=== PATIENT | female | born 1990 | race Caucasian/White ===

== ENCOUNTER 2022-05-01 16:47 | Outpatient (CLI) | payer MEDICAID, SELFPAY ==
[2022-05-01 18:53] LABS: HCG Quantitative* 231.51 mIU/mL
== END 2022-05-01 16:48 | disposition home or self-care (01) ==
PROVIDERS: PCP Registered Nurse; Visit Provider Registered Nurse
DX: O20.9 Hemorrhage in early pregnancy, unspecified (principal)
CPT/HCPCS: 76817; 84702; 86900; 86901

== ENCOUNTER 2022-05-03 16:42 | Outpatient (CLI) | payer MEDICAID, SELFPAY | END 2022-05-03 16:43 | disposition home or self-care (01) | PROVIDERS: PCP Registered Nurse; Visit Provider Registered Nurse | DX: O20.9 Hemorrhage in early pregnancy, unspecified (principal) | CPT/HCPCS: 84702 ==

== ENCOUNTER 2022-05-05 13:01 | Outpatient (CLI) | payer MEDICAID, SELFPAY | END 2022-05-05 13:02 | disposition home or self-care (01) | PROVIDERS: PCP Registered Nurse; Visit Provider Registered Nurse | DX: O03.4 Incomplete spontaneous abortion without complication (principal) | CPT/HCPCS: 84702 ==

== ENCOUNTER 2022-05-07 14:21 | Outpatient (CLI) | payer MEDICAID, SELFPAY | END 2022-05-07 14:22 | disposition home or self-care (01) | PROVIDERS: PCP Registered Nurse; Visit Provider Obstetrics & Gynecology | DX: O20.9 Hemorrhage in early pregnancy, unspecified (principal) | CPT/HCPCS: 84702 ==

== ENCOUNTER 2022-05-11 11:56 | Outpatient (CLI) | payer MEDICAID, SELFPAY ==
[2022-05-11 14:30] LABS: HCG Quantitative* 280.82 mIU/mL
== END 2022-05-11 11:57 | disposition home or self-care (01) ==
LOC: NFLDREF 11:57
PROVIDERS: PCP Registered Nurse; Visit Provider Obstetrics & Gynecology
DX: O03.4 Incomplete spontaneous abortion without complication (principal)
CPT/HCPCS: 84702

== ENCOUNTER 2022-05-14 15:04 | Outpatient (CLI) | payer MEDICAID, SELFPAY ==
[2022-05-14 12:50] LABS: HCG Quantitative* 212.91 mIU/mL
== END 2022-05-14 15:05 | disposition home or self-care (01) ==
PROVIDERS: PCP Registered Nurse; Visit Provider Obstetrics & Gynecology
DX: O03.4 Incomplete spontaneous abortion without complication (principal)
CPT/HCPCS: 84702

== ENCOUNTER 2022-05-24 13:10 | Outpatient (CLI) | payer MEDICAID, SELFPAY ==
[2022-05-24 17:54] LABS: HCG Quantitative* 74.56 mIU/mL
== END 2022-05-24 13:11 | disposition home or self-care (01) ==
LOC: NFLDREF 13:10
PROVIDERS: PCP Registered Nurse; Visit Provider Obstetrics & Gynecology
DX: O03.4 Incomplete spontaneous abortion without complication (principal)
CPT/HCPCS: 84702

== ENCOUNTER 2022-05-30 13:22 | Outpatient (CLI) | payer MEDICAID, SELFPAY | END 2022-05-30 13:23 | disposition home or self-care (01) | LOC: NFLDREF 13:24 | PROVIDERS: PCP Registered Nurse; Visit Provider Obstetrics & Gynecology | DX: O03.4 Incomplete spontaneous abortion without complication (principal) | CPT/HCPCS: 84702 ==

== ENCOUNTER 2022-06-06 11:57 | Outpatient (CLI) | payer MEDICAID, SELFPAY ==
[2022-06-06 15:13] LABS: HCG Quantitative* 6.93 mIU/mL
== END 2022-06-06 11:58 | disposition home or self-care (01) ==
LOC: NFLDREF 11:58
PROVIDERS: PCP Registered Nurse; Visit Provider Obstetrics & Gynecology
DX: O03.4 Incomplete spontaneous abortion without complication (principal)
CPT/HCPCS: 84702

== ENCOUNTER 2022-06-11 10:36 | Outpatient (CLI) | payer MEDICAID, SELFPAY ==
[2022-06-11 12:56] LABS: HCG Quantitative* < 2.39 mIU/mL
== END 2022-06-11 10:37 | disposition home or self-care (01) ==
LOC: NFLDREF 10:36
PROVIDERS: Obstetrics & Gynecology; PCP Registered Nurse; Visit Provider Obstetrics & Gynecology
DX: O03.4 Incomplete spontaneous abortion without complication (principal)
CPT/HCPCS: 84702

== ENCOUNTER 2023-02-20 14:12 | Outpatient (CLI) | payer MEDICAID, SELFPAY ==
[2023-02-20 18:59] LABS: Chlamydia DNA Amplified* NOT DETECTED (No Detected); GC DNA Amplified* NOT DETECTED (No Detected)
== END 2023-02-20 14:13 | disposition home or self-care (01) ==
LOC: NFLDREF 14:12
PROVIDERS: Visit Provider Registered Nurse
DX: N94.9 Unspecified condition associated with female genital organs and menstrual cycle (principal)
CPT/HCPCS: 87491; 87591

== ENCOUNTER 2023-03-19 13:48 | Outpatient (CLI) | payer MEDICAID, SELFPAY ==
--- NOTE | 2023-03-19 14:00 | CRLHL7_ITS ---
For Patients: As a result of the Century Cures Act, medical imaging exams and procedure reports are released immediately into your electronic medical record. You may view this report before your referring provider. If you have questions, please contact your health care provider. INDICATION: First trimester scan, establish dates. COMPARISON: None. TECHNIQUE: Real-time burton-scale imaging of the pelvis was performed. FINDINGS: Sonographic imaging demonstrates a single living intrauterine gestation. The embryo demonstrates a regular cardiac rate measuring 167 beats per minute. The embryo`s crown-rump length measurement of 1.3 cm corresponds to a gestational age of 7 weeks 4 days with a sonographic due date of 11/01/2023. There is a normal-appearing yolk sac. There are no gross abnormalities noted within the embryo at this early state of development. The gestational sac has a normal appearance. There is a 1.9 x 0.7 x 1.3 cm perigestational hemorrhage. The amount of fluid within the sac appears appropriate for gestational age. The cervix is closed. The myometrium appears normal. The ovaries are of normal size. Corpus luteal cyst left ovary. There are no suspicious fluid collections noted in the cul-de-sac. IMPRESSION: Single living intrauterine with sonographic gestational age 7 weeks 4 days and sonographic due date 11/01/2023. Lower uterine segment subchorionic hemorrhage measuring 1.9 x 0.7 x 1.3 cm. Dictated by Emmanuel Amanda MD @ 03/20/2023 7:12:41 AM (Electronically Signed)
== END 2023-03-19 13:49 | disposition home or self-care (01) ==
LOC: US 13:49
PROVIDERS: Visit Provider Advanced Practice Midwife
DX: Z34.91 Encounter for supervision of normal pregnancy, unspecified, first trimester (principal); O20.9 Hemorrhage in early pregnancy, unspecified; Z3A.01 Less than 8 weeks gestation of pregnancy
CPT/HCPCS: 76817; 86592; 86703; 86704; 86706; 86762; 86787; 86803; 86850; 86900; 86901; 87086; 87340

== ENCOUNTER 2023-03-19 15:19 | Outpatient (CLI) | payer MEDICAID, SELFPAY | END 2023-03-19 15:20 | disposition home or self-care (01) | PROVIDERS: Visit Provider Advanced Practice Midwife | DX: Z34.01 Encounter for supervision of normal first pregnancy, first trimester (principal) | CPT/HCPCS: 86592; 86703; 86704; 86706; 86762; 86787; 86803; 86850; 86900; 86901; 87086; 87340 ==

== ENCOUNTER 2023-06-14 07:00 | Outpatient (CLI) | payer BC, MEDICAID, SELFPAY ==
--- NOTE | 2023-06-14 07:15 | US_ITS ---
Final Report Patient: CARROLL Simon DETTLING Facility:?[facility] Patient ID:?[id number] Site Patient ID:?[id number]. Site :?1990 Study:?US OB Pelvis -06/14/2023 8:13:15 AM Ordering Physician:HUA MAC Final Report: INDICATION: Evaluate anatomy. COMPARISON: 03/19/2023 TECHNIQUE: Real time burton scale imaging of the fetus was performed as well as color Doppler analysis of the umbilical vessels. FINDINGS: Sonographic imaging demonstrates a single living intrauterine gestation. Fetus demonstrates a regular cardiac rate of 149 beats per minute. Fetus has a breech position. The placenta lies fundal posterior. Placental edges 13.8 cm from the internal cervical os. Amniotic fluid volume appears normal. Single deepest vertical pocket: 5.3 cm. The cervix is closed and measures 3.5 cm in length. The composite ultrasound gestational age is calculated at 20 weeks 5 days with an estimated sonographic due date of 10/27/2023. The estimated weight is 398 grams which lies at the 87th %. The following biometric measurements were obtained: Biparietal diameter: 4.8 cm/20 weeks 4 days 63rd% Head circumference: 17.9 cm/20 weeks 3 days 46th% Abdominal circumference: 17.1 cm/22 weeks 0 days 91st% Femur length: 3.3 cm/20 weeks 1 day 37th% The HC/AC ratio measures: 1.05 range (1.06-1.25) On anatomic survey, there is a normal appearance of the cerebral ventricles, cavum septi pellucidi, cisterna magna and cerebellum. The nose, lips, and facial profile appear normal. The cervical, thoracic and lumbar spine are well visualized and appear normal. There is a normal four-chamber heart view and the left and right ventricular outflow tracts appear normal. The diaphragm and stomach appear normal. The kidneys and bladder also appear normal. There is a normal three-vessel cord. Velamentous cord insertion appeared to be present. The four extremities appear normal. IMPRESSION: Concordant of clinical and sonographic dating. No intrinsic abnormalities noted on anatomic survey. Velamentous cord insertion. Dictated by Emmanuel Amanda MD @ 06/14/2023 11:36:54 AM (Electronic Signature)
== END 2023-06-14 07:01 | disposition home or self-care (01) ==
LOC: US 07:01
PROVIDERS: Visit Provider Advanced Practice Midwife
DX: Z34.92 Encounter for supervision of normal pregnancy, unspecified, second trimester (principal); Z3A.20 20 weeks gestation of pregnancy
CPT/HCPCS: 76805

== ENCOUNTER 2023-08-09 09:25 | Outpatient (CLI) | payer BC, MEDICAID, SELFPAY | END 2023-08-09 09:26 | disposition home or self-care (01) | LOC: NFLDREF 08-14 07:47 | PROVIDERS: Visit Provider Advanced Practice Midwife | DX: Z34.93 Encounter for supervision of normal pregnancy, unspecified, third trimester (principal) | CPT/HCPCS: 86592 ==

== ENCOUNTER 2023-08-23 15:22 | Outpatient (CLI) | payer BC, SELFPAY ==
[2023-08-23] VITALS (11 sets, daily range): BP systolic 131–141; BP diastolic 82–92; PULSE 98–113; TEMP 36.4; O2SAT 98
[2023-08-23 15:54] LABS: Mean Corpuscular HGB Conc 33 gm/dL (32-36); Mean Corpuscular Hemoglobin 31 pg (26-34); Mean Corpuscular Volume 91 fL (80-100); Platelet Count* 126 K/uL (140-440); Red Blood Count 3.94 m/uL (4.00-5.20); White Blood Count* 10.97 K/uL (4.50-11.00)
[2023-08-23 16:00] LABS: Slide Review Reflex No
[2023-08-23 16:11] LABS: Creatinine* 0.4 mg/dL (0.5-1.5); Estimated Glomerular Filt Rate 136 ml/min
[2023-08-23 16:12] LABS: Alanine Aminotransferase* 20 U/L (4-35); Aspartate Amino Transferase* 26 U/L (12-35); Blood Urea Nitrogen* 10 mg/dL (5-24)
[2023-08-23 16:29] LABS: Total Protein Urine 11 mg/dL
[2023-08-23 16:30] LABS: Creatinine Urine 17.1 mg/dL
--- NOTE | 2023-08-23 17:23 | PM.OBLDTN ---
OB - Triage/Final Diagnosis Visit Information Date Seen: 08/23/23 Narrative: The patient is a 32 year old 2 para 0 at 30.2 weeks gestation by LMP, who presents with her partner with elevated blood pressure in the clinic. Her blood pressures have been 130-140/80-90's. P/C ratio 0.6. We discussed diagnosis of Preeclampsia diagnosis and increased monitoring recommendations. She has a blood pressure cuff at home and will check her blood pressure twice a day at home with parameters. Reviewed Preectammya s/sx. Will plan for a BPP on Saturday or Saturday and set up the rest o f her monitoring at that time. She knows that she will get a call from scheduling on Saturday to set this up. we had a lengthy discussion about her anxiety. She is agreeable to starting medication today. She has been on sertraline in the past and wants to restart this. Prescription sent. Reason for evaluation: other Evaluation Laboratory results: Laboratory Tests 08/23/23 08/23/23 Range/Units 15:48 15:37 WBC 10.97 (4.50-11.00) K/uL RBC 3.94 L (4.00-5.20) m/uL Hgb 12.0 (12.0-16.0) gm/dL Hct 36.0 (33.0-51.0) % MCV 91 (80-100) fL MCH 31 (26-34) pg MCHC 33 (32-36) gm/dL Plt Count 126 L (140-440) K/uL BUN 10 (5-24) mg/dL Creatinine 0.4 L (0.5-1.5) mg/dL Estimated GFR 136 ml/min AST 26 (12-35) U/L ALT 20 (4-35) U/L Urine Creatinine 17.1 mg/dL Protein/Creatinin Ratio 0.60 H (0-0.19) Urine Total Protein 11 mg/dL Vital signs: Vital Signs - 24 hr 08/23/23 15:32 08/23/23 15:50 08/23/23 15:57 Temperature Pulse Rate 103 H 113 H Blood Pressure 141/82 H 139/90 H Pulse Oximetry 98 08/23/23 16:16 08/23/23 16:26 08/23/23 16:33 Temperature 97.5 F L Pulse Rate 99 100 Blood Pressure 139/92 H 136/88 Pulse Oximetry 08/23/23 16:36 08/23/23 16:47 08/23/23 16:58 Temperature Pulse Rate 98 104 H 105 H Blood Pressure 134/85 140/83 H 131/90 H Pulse Oximetry 08/23/23 17:06 08/23/23 17:16 Temperature Pulse Rate 111 H 98 Blood Pressure 138/91 H 141/87 H Pulse Oximetry Fetus (Single) Heart Rate Baseline: 130 Absorption Plant Operator Variability: Moderate (6-25) Monitor Accelerations: Present Monitor Decelerations: None Final Diagnosis (1) Velamentous insertion of umbilical cord: Status: Acute (2) : Status: Acute (3) Pre-eclampsia in third trimester: Status: Acute
--- NOTE | 2023-08-23 18:26 | PC.OBNST ---
NST Note NST Note Start: 08/23/23 15:26 Freq: ONCE Status: Active Protocol: Document 08/23/23 17:55 FJZ (Rec: 08/23/23 18:25 FJZ [id number]) NST Note 2 Para (# of births) 0 EDC 10/30/23 Gestational Age In Weeks & Days 30 Weeks & 2 Days Other Complaints Sent from clinic for BP monitoring. Reactive Yes Appropriate for Gestational Age Yes RN Carloz Riley RN Date 08/23/23 Reactive Yes Appropriate for Gestational Age Yes IZZY Butler RNC Date 08/23/23 OB NST charge Yes Complete NST Note via Write Note Yes The provider's electronic signature indicates the NST is reactive/appropriate for gestational age. *Note to provider: If an addendum is required, open the patient's chart and click on the note under the Nurse/Allied Health tab.
== END 2023-08-23 17:55 | disposition home or self-care (01) ==
LOC: OB OUT 15:25 → OB 15:26
PROVIDERS: PCP Advanced Practice Midwife; Visit Provider Advanced Practice Midwife
DX: O43.123 Velamentous insertion of umbilical cord, third trimester (principal); O14.93 Unspecified pre-eclampsia, third trimester; Z3A.30 30 weeks gestation of pregnancy
CPT/HCPCS: 36415; 59025; 76816; 82565; 82570; 84156; 84450; 84460; 84520; 85027; G0463

== ENCOUNTER 2023-08-26 10:11 | Outpatient (CLI) | payer BC, SELFPAY ==
--- NOTE | 2023-08-26 10:15 | US_ITS ---
Patient: CARROLL Simon DETTLING Facility:?[facility] Patient ID:?[id number] Site Patient ID:?[id number]. Site :?1990 Study:?US-OB Pelvis OB BPP-08/26/2023 11:14:57 AM Ordering Physician:?HUA PORTER CNM Final Report: INDICATION: HTN, Velamentous cord insert COMPARISON: 08/23/2023 TECHNIQUE: Real time burton scale imaging of the fetus was performed. Without non-stress testing. FINDINGS: Sonographic imaging demonstrates a single living intrauterine gestation. Fetus demonstrates a regular cardiac rate of 145 beats per minute. Fetus has a breech position. The amniotic fluid volume appears normal and there is a single deepest pocket measurement of 4.9 cm. The fetus was active. Absent breathing movements. There was normal flexion and extension of the trunk and extremities. IMPRESSION: Biophysical profile 10/04. Dictated by Emmanuel Amanda MD @ 08/26/2023 12:03:37 PM Signed by:?Emmanuel Amanda MD @08/26/2023 12:03:37 PM (Electronic Signature)
== END 2023-08-26 10:12 | disposition home or self-care (01) ==
LOC: US 10:12
PROVIDERS: PCP Advanced Practice Midwife; Visit Provider Advanced Practice Midwife
DX: O14.93 Unspecified pre-eclampsia, third trimester (principal)
CPT/HCPCS: 76819

== ENCOUNTER 2023-08-30 10:13 | Outpatient (CLI) | payer BC, SELFPAY | END 2023-08-30 10:14 | disposition home or self-care (01) | LOC: NFLDREF 10:14 | PROVIDERS: Visit Provider Advanced Practice Midwife | DX: O14.93 Unspecified pre-eclampsia, third trimester (principal); Z3A.31 31 weeks gestation of pregnancy | CPT/HCPCS: 82565; 82570; 84156; 84450; 84460; 84520 ==

== ENCOUNTER 2023-09-03 09:04 | Outpatient (CLI) | payer BC, SELFPAY ==
--- NOTE | 2023-09-03 09:15 | US_ITS ---
Patient: CARROLL Simon DETTLING Facility:?[facility] Patient ID:?[id number] Site Patient ID:?[id number]. Site :?1990 Study:?US-OB Pelvis OB BPP-09/03/2023 10:06:25 AM Ordering Physician:?EDUARDO GRIDER CNM Final Report: INDICATION: Preeclampsia TECHNIQUE: Limited transabdominal two-dimensional burton-scale ultrasound examination. COMPARISON: 08/26/2023, 08/23/2023 and 06/14/2023 FINDINGS: There is a living fetus in breech lie with gestational age of 31 weeks 6 days and EDC of 10/30/2023. The biophysical profile score is 8/8. The heart rate is measured at 147 beats per minute and the rhythm appears regular. The amniotic fluid volume is within normal limits with single deepest pocket of 3.5 cm. The placenta is fundal and superior to the cervical os. There is no evidence of previa. IMPRESSION: 1. Living fetus in breech lie with gestational age of 31 weeks 6 days and EDC of 10/30/2023. 2. Biophysical profile score is 8/8. Dictated by Francesco Lenz MD @ 09/03/2023 5:00:10 PM Signed by:?Francesco Lenz MD @09/03/2023 5:00:10 PM (Electronic Signature)
== END 2023-09-03 09:05 | disposition home or self-care (01) ==
LOC: US 09:05
PROVIDERS: Visit Provider Advanced Practice Midwife
DX: O14.93 Unspecified pre-eclampsia, third trimester (principal); Z3A.31 31 weeks gestation of pregnancy
CPT/HCPCS: 76819; 82570; 84156

== ENCOUNTER 2023-09-06 08:10 | Outpatient (CLI) | payer BC, SELFPAY | END 2023-09-06 08:11 | disposition home or self-care (01) | LOC: NFLDREF 09-09 15:32 | PROVIDERS: Visit Provider Advanced Practice Midwife | DX: O14.93 Unspecified pre-eclampsia, third trimester (principal) | CPT/HCPCS: 82570; 84156; 84450; 84460; 84520 ==

== ENCOUNTER 2023-09-09 08:59 | Outpatient (CLI) | payer BC, SELFPAY ==
--- NOTE | 2023-09-09 09:15 | US_ITS ---
Patient: CARROLL Simon DETTLING Facility:?[facility] Patient ID:?[id number] Site Patient ID:?[id number]. Site :?1990 Study:?US-OB Pelvis OB BPP-09/09/2023 9:40:11 AM Ordering Physician:?EDUARDO GRIDER CNM Final Report: INDICATION: Unspecified pre-eclampsia COMPARISON: 09/03/2023 TECHNIQUE: Real time burton scale imaging of the fetus was performed. Without non-stress testing. FINDINGS: Sonographic imaging demonstrates a single living intrauterine gestation. Fetus demonstrates a regular cardiac rate of 137 beats per minute. Fetus has a breech position. The amniotic fluid volume appears normal and there is a single deepest pocket measurement of 4.5 cm. The fetus was active and demonstrated normal breathing movements. There was normal flexion and extension of the trunk and extremities. IMPRESSION: Normal biophysical profile score of 8 out of 8. Dictated by Emmanuel Amanda MD @ 09/09/2023 5:16:45 PM Signed by:?Emmanuel Amanda MD @09/09/2023 5:16:45 PM (Electronic Signature)
== END 2023-09-09 09:00 | disposition home or self-care (01) ==
LOC: US 08:59
PROVIDERS: Visit Provider Advanced Practice Midwife
DX: O14.93 Unspecified pre-eclampsia, third trimester (principal); O43.123 Velamentous insertion of umbilical cord, third trimester
CPT/HCPCS: 76819

== ENCOUNTER 2023-09-13 09:20 | Outpatient (CLI) | payer BC, SELFPAY | END 2023-09-13 09:21 | disposition home or self-care (01) | LOC: NFLDREF 10-03 05:32 | PROVIDERS: Visit Provider Advanced Practice Midwife | DX: O14.93 Unspecified pre-eclampsia, third trimester (principal); Z3A.33 33 weeks gestation of pregnancy | CPT/HCPCS: 82565; 84450; 84460; 84520; 84550 ==

== ENCOUNTER 2023-09-16 07:06 | Outpatient (CLI) | payer BC, SELFPAY ==
--- NOTE | 2023-09-16 07:15 | US_ITS ---
Patient: CARROLL DETTLING Facility:?[facility] Patient ID:?[id number] Site Patient ID:?[id number] Site :?1990 Study:?US-OB Pelvis BPP-09/16/2023 7:33:26 AM Ordering Physician:PHUC GRIDER Final Report: OB BIOPHYSICAL PROFILE 09/16/2023 CLINICAL HISTORY: Unspecific pre-eclampsia. SINGLE GA: 33 weeks 5 days. MANOHAR by LMP: 10/30/2023. COMPARISON: 09/09/2023, 09/03/2023, 08/26/2023. BIOPHYSICAL PROFILE: Total Score: 8 Gross Body Movements: 2 Tone: 2 Respiratory Activity: 2 Amniotic Fluid: 2 CERVIX: Not visualized. PLACENTA: Technique: TA. PLACENTA POSITION: Left wall. DOPPLERS: Heart Rate: 135 bpm. IMPRESSION: Biophysical profile score 8/8. Nellie Younger M.D. Diagnostic/Breast Radiologist [email or web address]: D& Transcribed: 11:35 am DW/Dictated by: Nellie Younger MD @ 09/16/2023 7:34:00 AM Signed by:?Nellie Younger MD @09/19/2023 10:36:33 AM (Electronic Signature)
== END 2023-09-16 07:07 | disposition home or self-care (01) ==
LOC: US 07:07
PROVIDERS: Visit Provider Advanced Practice Midwife
DX: O14.93 Unspecified pre-eclampsia, third trimester (principal); Z3A.33 33 weeks gestation of pregnancy
CPT/HCPCS: 76819

== ENCOUNTER 2023-09-20 08:10 | Outpatient (CLI) | payer BC, MEDICAID, SELFPAY | END 2023-09-20 08:11 | disposition home or self-care (01) | LOC: NFLDREF 09-24 19:36 | PROVIDERS: Visit Provider Advanced Practice Midwife | DX: O14.93 Unspecified pre-eclampsia, third trimester (principal) | CPT/HCPCS: 82565; 82570; 84156; 84450; 84460; 84520; 84550 ==

== ENCOUNTER 2023-09-24 08:02 | Outpatient (CLI) | payer BC, SELFPAY ==
--- NOTE | 2023-09-24 08:15 | CRLHL7_ITS ---
For Patients: As a result of the Century Cures Act, medical imaging exams and procedure reports are released immediately into your electronic medical record. You may view this report before your referring provider. If you have questions, please contact your health care provider. OB ULTRASOUND, BPP WITH RANDI INDICATION: Pre-eclampsia. MANOHAR by LMP: 10/30/2023. GA: 34w, 6d. Single. COMPARISON: 09/16/2023. CERVIX: Not visualized. POSITIONING: Irvin breech. AMNIOTIC FLUID: 4.9 cm SDP (N: Increase 2 x 1 cm). BIOPHYSICAL PROFILE: Total score: 8. Gross body movements: 2. tone: 2. Respiratory activity: 2. Amniotic fluid: 2. (SDP N: Increase 2 x 1 cm). PLACENTA: Technique: Transabdominal. PLACENTA POSITION: Fundal, left wall. DOPPLER: heart rate: 130 bpm. Biometry: BPD: 9.1 cm. 36w, 6d, 94 percent. HC: 33.1 cm. 37w, 5d, 84 percent. AC: 32.7 cm. 36w, 4d, 93 percent. FL: 6.7 cm. 34w, 2d, 27 percent. FL/AC ratio: 20.37 percent. HC/AC ratio: 1.01. EFW: 2867 g. Weight: 6 lbs, 5 oz. age by this US: 36w, 3d. MANOHAR by this US: 10/19/2023. Percentile by MANOHAR: 82 percent. IMPRESSION: 1. Normal biophysical profile score of 8/8. 2. Abdominal circumference is at the 93rd percentile. Biparietal diameter is at the 94th percentile. Maikel Alejo M.D. Body/Diagnostic Radiologist [email or web address] SP/Dictated by: Maikel Alejo MD @ 09/24/2023 10:25:00 AM (Electronically Signed)
== END 2023-09-24 08:03 | disposition home or self-care (01) ==
LOC: US 08:03
PROVIDERS: Visit Provider Advanced Practice Midwife
DX: O14.93 Unspecified pre-eclampsia, third trimester (principal); Z3A.34 34 weeks gestation of pregnancy
CPT/HCPCS: 76816; 76819; 87081; 87653

== ENCOUNTER 2023-09-26 13:00 | Outpatient (RCR) | payer BC, MEDICAID, SELFPAY | END 2024-01-24 23:59 | disposition home or self-care (01) | PROVIDERS: Visit Provider Advanced Practice Midwife | DX: O26.899 Other specified pregnancy related conditions, unspecified trimester (principal); R10.2 Pelvic and perineal pain; Z51.89 Encounter for other specified aftercare | CPT/HCPCS: 97110; 97140; 97162; 97535 ==

== ENCOUNTER 2023-09-27 08:07 | Outpatient (CLI) | payer BC, MEDICAID, SELFPAY | END 2023-09-27 08:08 | disposition home or self-care (01) | LOC: NFLDREF 10-01 22:33 | PROVIDERS: PCP Advanced Practice Midwife; Visit Provider Advanced Practice Midwife | DX: O14.93 Unspecified pre-eclampsia, third trimester (principal); Z3A.35 35 weeks gestation of pregnancy | CPT/HCPCS: 82565; 84450; 84460; 84550 ==

== ENCOUNTER 2023-09-30 08:42 | Outpatient (CLI) | payer BC, MEDICAID, SELFPAY ==
[2023-09-30] VITALS (14 sets, daily range): BP systolic 124–140; BP diastolic 78–95; PULSE 83–104; RESP 16; TEMP 36.8
[2023-09-30 10:02] LABS: Hematocrit 33.3 % (33.0-51.0); Hemoglobin* 11.2 gm/dL (12.0-16.0); Mean Corpuscular HGB Conc 34 gm/dL (32-36); Mean Corpuscular Hemoglobin 30 pg (26-34); Mean Corpuscular Volume 90 fL (80-100); Platelet Count* 105 K/uL (140-440); Red Blood Count 3.71 m/uL (4.00-5.20); White Blood Count* 9.31 K/uL (4.50-11.00)
[2023-09-30 10:16] LABS: Alanine Aminotransferase* 20 U/L (4-35); Aspartate Amino Transferase* 23 U/L (12-35); Blood Urea Nitrogen* 7 mg/dL (5-24); Creatinine* 0.5 mg/dL (0.5-1.5); Estimated Glomerular Filt Rate 129 ml/min
[2023-09-30 10:28] LABS: Slide Review Reflex Yes
[2023-09-30 10:29] LABS: Slide Review Acceptable Review (Acceptable)
[2023-09-30 11:03] LABS: Total Protein Urine 14 mg/dL
[2023-09-30 11:04] LABS: Creatinine Urine 22.6 mg/dL; Protein Creatinine Ratio Urine 0.62 (0-0.19)
--- NOTE | 2023-09-30 14:38 | PC.OBNST ---
NST Note NST Note Start: 09/30/23 08:52 Freq: ONCE Status: Active Protocol: Document 09/30/23 14:37 ABP (Rec: 09/30/23 14:38 ABP [id number]) NST Note 2 Para (# of births) 0 EDC 10/30/23 Gestational Age In Weeks & Days 35 Weeks & 5 Days High Risk Factors High Blood Pressure - Gestational Patient Presented with Complaint(s) of Other Other Complaints Further blood pressure monitoring after having 2 high readings in clinic. Reactive Yes IZZY Redd, RN Date 09/30/23 Reactive Yes IZZY Corbett RN Date 09/30/23 OB NST charge Yes Complete NST Note via Write Note Yes The provider's electronic signature indicates the NST is reactive/appropriate for gestational age. *Note to provider: If an addendum is required, open the patient's chart and click on the note under the Nurse/Allied Health tab.
== END 2023-09-30 12:55 | disposition home or self-care (01) ==
LOC: OB OUT 08:44 → OB 08:45
PROVIDERS: PCP Advanced Practice Midwife; Visit Provider Advanced Practice Midwife
DX: O16.3 Unspecified maternal hypertension, third trimester (principal); Z3A.35 35 weeks gestation of pregnancy
CPT/HCPCS: 36415; 59025; 76819; 82565; 82570; 84156; 84450; 84460; 84520; 85027; G0463

== ENCOUNTER 2023-10-04 08:57 | Outpatient (CLI) | payer BC, MEDICAID, SELFPAY ==
[2023-10-04] VITALS (9 sets, daily range): BP systolic 127–151; BP diastolic 87–97; PULSE 85–99
--- NOTE | 2023-10-04 11:13 | PC.OBNST ---
NST Note NST Note Start: 10/04/23 09:20 Freq: ONCE Status: Active Protocol: Document 10/04/23 11:11 JUSTO (Rec: 10/04/23 11:13 JUSTO [id number]) NST Note 2 Para (# of births) 1 EDC 10/30/23 Gestational Age In Weeks & Days 36 Weeks & 2 Days High Risk Factors High Blood Pressure - Gestational Patient Presented with Complaint(s) of Other Other Complaints Elevated blood pressures in clinic today Reactive Yes Appropriate for Gestational Age Yes RN Rordick Anton, RN Date 10/04/23 Reactive Yes Appropriate for Gestational Age Yes IZZY Riley RN Date 10/04/23 OB NST charge Yes Complete NST Note via Write Note Yes The provider's electronic signature indicates the NST is reactive/appropriate for gestational age. *Note to provider: If an addendum is required, open the patient's chart and click on the note under the Nurse/Allied Health tab.
--- NOTE | 2023-10-04 11:19 | PM.OBLDTN ---
OB - Triage/Final Diagnosis Visit Information Narrative: Jazzmine is a 32 yo at 36 2/7 weeks gestation that presented to clinic for routine NST appointments for previously diagnosed Pre-e without severe features. She had a severe range blood pressure in clinic that remained elevated with repeat BP check. She was sent to labor and delivery for further monitoring. She denies any headache, blurred vision, epigastric pain, or n/v. Blood pressures in triage remained upper normotensive. Labs were repeat and are WNL. Patient has a visit scheduled for Saturday with BPP. She is then planning a version/IOL/C/s next Saturday. She has a blood pressure cuff at home and is monitoring twice per day and sometimes more depending on how she is feeling. She reports that they are normotensive at home. Evaluation Vital signs: Vital Signs - 24 hr 10/04/23 09:30 10/04/23 09:40 10/04/23 09:50 Pulse Rate 86 88 93 Blood Pressure 151/97 H 142/92 H 132/94 H 10/04/23 10:00 10/04/23 10:10 10/04/23 10:20 Pulse Rate 85 98 93 Blood Pressure 136/93 H 138/91 H 138/92 H 10/04/23 10:30 10/04/23 10:41 10/04/23 10:51 Pulse Rate 98 96 99 Blood Pressure 127/87 138/95 H 131/93 H Final Diagnosis (1) Pre-eclampsia in third trimester: Status: Acute Assessment & Plan Assessment & Plan (1) Pre-eclampsia in third trimester: Plan Detail Assessment: ASSESSMENT:? 32 at 36 2/7 weeks gestation? Pre-eclampsia without severe features BP stabilized, severe range in clinic but normotensive in OB Triage. Reviewed warning s/sx including headache, epigastric pain, blurred vision, or nausea/vomiting. Patient instructed to monitor her blood pressure twice per day. Labs repeat and WNL. Reviewed with Dr. Limon who agrees with plan. Patient has BPP and visit with CNM on Saturday. Plan for IOL vs. C/s following ECV scheduled for 10/09/2023. Discharged to home. Time Spent: Please review Coding section regarding the total time spent today in the care of this patient, separate from any independently billable service. Care includes but is not limited to a medically appropriate evaluation and?the?documentation?of?the care?in?the?health?record.
== END 2023-10-04 11:03 | disposition home or self-care (01) ==
LOC: OB OUT 08:57 → OB 08:59
PROVIDERS: Visit Provider Obstetrics & Gynecology
DX: O14.93 Unspecified pre-eclampsia, third trimester (principal); Z3A.36 36 weeks gestation of pregnancy
CPT/HCPCS: 59025; 82565; 82570; 84156; 84450; 84460; 84520; 84550; G0463

== ENCOUNTER 2023-10-07 08:34 | Outpatient (CLI) | payer BC, MEDICAID, SELFPAY ==
--- NOTE | 2023-10-07 08:45 | CRLHL7_ITS ---
For Patients: As a result of the Century Cures Act, medical imaging exams and procedure reports are released immediately into your electronic medical record. You may view this report before your referring provider. If you have questions, please contact your health care provider. INDICATION: Preeclampsia COMPARISON: 09/30/2023 TECHNIQUE: Real time burton scale imaging of the fetus was performed. Without non-stress testing. FINDINGS: Sonographic imaging demonstrates a single living intrauterine gestation. Fetus demonstrates a regular cardiac rate of 144 beats per minute. Fetus has a breech position. The amniotic fluid volume appears normal and there is a single deepest pocket measurement of 3.1 cm. The fetus was active. Absent breathing movements for 30 seconds. There was normal flexion and extension of the trunk and extremities. IMPRESSION: Biophysical profile 10/04. Dictated by Emmanuel Amanda MD @ 10/07/2023 10:26:48 AM (Electronically Signed)
== END 2023-10-07 08:35 | disposition home or self-care (01) ==
LOC: US 08:34
PROVIDERS: Visit Provider Advanced Practice Midwife
DX: O14.93 Unspecified pre-eclampsia, third trimester (principal); O43.123 Velamentous insertion of umbilical cord, third trimester
CPT/HCPCS: 76819

== ENCOUNTER 2023-10-09 07:34 | Inpatient (IN) | payer BC, MEDICAID, SELFPAY ==
[2023-10-09] VITALS (23 sets, daily range): BP systolic 132–163; BP diastolic 78–112; PULSE 83–181; RESP 20; TEMP 36.4–37.1; O2SAT 79–100; BMI 30.2
[2023-10-09 08:25] LABS: Basophils Absolute Auto 0.02 K/uL (0.00-0.30); Basophils Percent Auto 0.2 % (0.0-3.0); Eosinophils Absolute Auto 0.07 K/uL (0.00-0.50); Eosinophils Percent Auto 0.8 % (0.0-7.0); Hematocrit 34.7 % (33.0-51.0); Hemoglobin* 11.7 gm/dL (12.0-16.0); Immature Granulocytes Abs Auto 0.07 K/uL (0.00-0.30); Immature Granulocytes Pct Auto 0.8 %; Lymphocytes Percent Auto 19.6 % (20-44); Mean Corpuscular HGB Conc 34 gm/dL (32-36); Mean Corpuscular Hemoglobin 30 pg (26-34); Mean Corpuscular Volume 89 fL (80-100); Monocytes Percent Auto 8.5 % (0.0-11.0); Neutrophils Absolute Auto 6.04 K/uL (1.7-7.0); Neutrophils Percent Auto 70.1 % (42.0-72.0); Platelet Count* 111 K/uL (140-440); Red Blood Count 3.91 m/uL (4.00-5.20); White Blood Count* 8.62 K/uL (4.50-11.00)
[2023-10-09 08:31] LABS: Slide Review Reflex No
[2023-10-09 08:38] LABS: Alanine Aminotransferase* 22 U/L (4-35); Aspartate Amino Transferase* 30 U/L (12-35); Blood Urea Nitrogen* 8 mg/dL (5-24); Creatinine* 0.5 mg/dL (0.5-1.5); Est. Creatinine Clearance* 154.02; Estimated Glomerular Filt Rate 129 ml/min
[2023-10-09] MEDS: TERBUTALINE 1 MG/ML INJ 0.25 MG SUBCUT (08:58)
--- NOTE | 2023-10-09 09:49 | W.PM.LDBA ---
Subjective History of Present Illness Narrative: Jazzmine is a 32 yo at 37 0/7 weeks gestation being admitted to Labor and Delivery for induction of labor for pre-eclampsia following successful ECV by Dr. Limon. See her note for documentation of this. She has been NPO for her ECV and possible c/s vs IOL. She is supported by her Nimesh. She reports her BP's at home have been 130/80's. She denies any headache, blurred vision, epigastric pain, or nausea/vomiting. Her full history and physical was dictated by LIYA Cervantes on 09/30/2023. Please see this for details. Specific Issues/Plans G2P 0 : Nimesh H&P done by Lupe Pool CNM on 09/30/23 # Preeclampsia. Possible underlying CHTN 30 weeks: P/C ratio 0.6, BPs 130-140/80-90 24 hr urine: Total protein 431, P/C ratio 0.3 Consider MD consult-discussed. Would like as much CNM care as possible. Twice weekly BPP/NST and Growth US Q4 weeks (growth at 34wks). Weekly Pre-e labs, on Saturday's Delivery at 37 weeks # Velamentous cord insertion seen at 20 wks Growth US q 4 weeks starting at 28-32 wks: -30 weeks: Breech, EFW 46% -34 weeks: Breech, EFW 82%, BPP 8/8 # Hx anxiety, depression, and OCD. Seeing a therapist once a month. Encouraged to increase to twice a month. Started on sertraline on 08/22, mood much better # Hep B antibody negative. Not high risk. # Breech at 32 weeks # Thrombocytopenia of NOB 193, stable since 28 weeks around 113-122 Consider TXA after delivery COVID: declined Flu: declined TDAP: 08/25 32wk Mental Health: 09/09/2023 34wk Hgb: 09/20/2023= 11.3 OB - Problem Based A/P Additional Plan (1) 37 weeks gestation of : Status: Acute (2) Successful external cephalic version: Status: Acute (3) Encounter for induction of labor: Status: Acute (4) Pre-eclampsia: Status: Acute Plan ASSESSMENT:? 32 at 37 0/7 weeks gestation? complicated by:?Preeclampsia without SF, velamentous cord insertion, Anxiety/depression on sertraline, Breech now vertex following ECV today, thrombocytopenia of Labor type: induced labor? Category 1 FHR pattern.?? Labor complicated by: None? GBS negative? ? PLAN:? 1. Routine intrapartum cares as ordered. Reviewed IOL agents including cytotec, gonsalves, cervadil, and pitocin. Recommend vaginal cytotec at this time every 4 hours. Patient agrees with plan. Discussed AROM sooner if able due to breech fetus prior to ECV today. 2. Monitoring per policy, continuous? 3. Planning unmedicated . Desires water . Consent signed. Hep C negative. Candidate for analgesia of choice if desired. She is a candidate for waterbirth as long as she does not require any medications for blood pressure.?? 4. Patient encouraged to reposition and ambulate to promote physiologic labor and .? 5. Thrombocytopenia stable, plts 111 today. 6. Pre-eclampsia labs WNL today. Monitor BP per protocol. Dr. Limon aware of patient and agrees with plan. 7. Anticipate ? Delivery/Labor/Induction Plan Plan: induction Induction method: per misoprostol protocol OB Result Labs Blood Type: B (+) positive GBS Status: negative OB Exam Physical Exam Vital signs: Pulse BP Pulse Ox 97 133/89 99 10/09/23 08:33 10/09/23 08:33 10/09/23 07:43 Narrative: Vitals Reviewed Constitutional:? Alert and oriented x3 HEENT:? Normocephalic, atraumatic Neck:? Supple Lungs:? Clear to auscultation bilaterally Heart:? Regular rate and rhythm, no murmur, rub or gallop Abdomen:? Soft, nontender, and gravid. Vertex by Sukhwinder's, confirmed with cervical exam. ECV prior, and vertex confirmed by US. Extremities:? No edema or erythema Cervix: 0 cm/-3 station/vertex NST: 140 bpm/moderate variability/15x15 accelerations/no decelerations/occasional contractions Detailed Labor and Delivery Exam Patient Gravid: Yes
--- NOTE | 2023-10-09 10:02 | P.GYNPRC_ITS ---
Procedure Note Time Seen by Provider: 10:02 Date of procedure: 10/09/23 Will [facility] bill your pro fee for this procedure?: Yes
--- NOTE | 2023-10-09 10:02 | W.PM.GYNPROC ---
Procedure Note Time Seen by Provider: 10:02 Date of procedure: 10/09/23 Will [facility] bill your pro fee for this procedure?: Yes
[2023-10-09] MEDS: miSOPROStoL 25 MCG/0.25 TABLET VAGINAL ×2 (10:23→13:28)
--- NOTE | 2023-10-09 13:10 | P.PCN_ITS ---
Procedure Note Time Seen by Provider: 09:00 Date Seen: 10/09/23 Will [facility] bill your pro fee for this procedure?: Yes Procedure: I discussed with patient that 3-4% of pregnancies are breech at term.? If there is a concern in for malpresentation, we assessed with ultrasound at 36 weeks.? If the fetus continues to be breech at 36 weeks, she has the option of attempting an external cephalic version at 37 weeks.? We discussed the rationale for doing the procedure at 37 weeks (technically feasible, fetus is term should delivery be indicated, and lower risk of reversion). Contraindication to external cephalic version is anything that is a contraindication to vaginal delivery such as a placenta previa, multiple previous CD etc. Patient does NOT have any contraindications. The benefit of an external cephalic version is fewer delivery.? There is a lower odd of endometritis, sepsis, hospital stay greater than 7 days.? It is important to know that there is no difference for low APGARs, low umbilical vein pH, and when comparing external cephalic version with subsequent vaginal delivery to planned delivery at term. The risks of external cephalic version: heart rate changes (most common in stabilizes when procedure is discontinued). ?Overall, serious adverse effects are very low, all < 1%.? These include placental abruption, umbilical cord prolapse, rupture of membranes, stillbirth, maternal hemorrhage.? The risk of an emergency delivery is also low. We discussed factors affecting success.? The overall success rate quoted in the literature is 58%.? Factors that her favorable towards a successful external cephalic version are increased parity, transverse or oblique presentation, normal amniotic volume, normal maternal BMI, and posterior placental location. Factors more associated with failure is nulliparity, advanced dilation, weight less than 2500g, anterior placenta, and low station. She will be given terbutaline for tocolysis prior to the procedure.? We discusse d that terbutaline has doubled the rate of ECV success.? With regards to anesthesia, neuraxial anesthesia is available to her should she desire. I will be performing an ultrasound prior to the ECV to confirm positioning.? Additionally, if we are to proceed with the external cephalic version we will get a reactive NST prior to proceeding.?During the procedure intermittent ultrasonography will be used to assess for status.? If there is any concern for or maternal well being the procedure will be terminated immediately. After the procedure, regardless of success or not, she and fetus will be monitored for at least 30 minute prior to discharge. Patient does not require RhoGAM as she is Rh positive. Procedure: External cephalic version Procedure Description: PREOPERATIVE DIAGNOSIS: 1. Intrauterine at 37 weeks gestation. 2. Breech presentation. 3. Preeclampsia POSTOPERATIVE DIAGNOSIS: 1. Intrauterine at 37 weeks gestation. 2. Vertex presentation. 3. Preeclampsia PROCEDURE: 1. Nonstress test. 2. Limited OB ultrasound. 3. External cephalic version. SURGEON: MD Braxton INFORMATION SECURITY OFFICER: MD Peewee ANESTHESIA: None. COMPLICATIONS: None. FINDINGS: Nonstress test: heart rate baseline 140s beats per minute, moderate variability, 15 x 15 accelerations present, no decelerations, category 1. Limited OB ultrasound: Single, living, intrauterine gestation in a carley breech presentation with the back along the maternal right, grossly normal amniotic fluid volume. PROCEDURE NOTE: A nonstress test was performed, which was reactive and reassuring. A limited OB ultrasound was performed at the bedside to determine position. Findings noted above. Informed consent was obtained for external cephalic version. Terbutaline 0.25 mg was administered to the patient subcutaneously. External cephalic version was attempted. Dr. Vides applied upward pressure to the breech and I applied pressure to the vertex, and we attempted to coax the fetus in a forward roll in a counter- clockwise direction. This first attempt was successful. heart tones were noted to be normal during spot checks. The patient tolerated the procedure well. monitoring for 1 hour after the procedure continued to be reassuring. The midwifery service was informed and will starting her induction of labor due to preeclampsia. Anesthesia: None Condition: stable Disposition: Return to midwifery service for IOL
[2023-10-09] MEDS: SODIUM CHLORIDE 0.9 % (FLUSH) 10 ML SYRINGE IVF (18:45)
--- NOTE | 2023-10-09 20:08 | PM.OBPNL ---
Subjective Date Seen: 10/09/23 Narrative: Jazzmine is a 32 yo at 37 0/7 weeks gestation here for IOL for pre-e without severe features. She had a successful ECV this morning. Her induction was started with cytotec She received two doses and contractions became more regular and unable to give another dose. She then spontaneously ruptured, clear fluid, at about 1735. Since then her contractions have become more intense. She was having some intermittent pressure that was only mildly relieved after a bowel movement. She is coping well. Her is supporting her. She also has other family members present in the room for labor support. Objective Exam: Objective: Constitutional: Alert and oriented x3, moderate distress, coping well Vital signs stable, see nurse documentation Abdomen: gravid, contractions palpate strong with contractions and soft between Cervix: 3 cm/70%/0 to +1 station/vertex NST: 140 bpm/moderate variability/difficult to determine accelerations and decelerations due to maternal positioning and difficulty tracing/contractions every 2-3 minutes Vital Signs: Last Vital Signs Temp 97.7 F 10/09/23 17:03 Pulse 93 10/09/23 19:53 BP 141/97 H 10/09/23 19:53 Pulse Ox 97 10/09/23 17:02 Plan Plan: ASSESSMENT:? 32 at 37 0/7 weeks gestation? complicated by:?Preeclampsia without SF, velamentous cord insertion, Anxiety/depression on sertraline, Breech now vertex following ECV today, thrombocytopenia of Labor type: induced, early labor? Category 1 FHR pattern.?? Labor complicated by: None? GBS negative? ? PLAN:? 1. Routine intrapartum cares as ordered. Received 2 doses of Cytotec. Currently expectantly managed. 2. Monitoring per policy, continuous? 3. Planning unmedicated . Desires water . Consent signed. Hep C negative. Candidate for analgesia of choice if desired. She is a candidate for waterbirth as long as she does not require any medications for blood pressure.?? 4. Patient encouraged to reposition and ambulate to promote physiologic labor and .? 5. Thrombocytopenia stable, plts 111 today. 6. Pre-eclampsia labs WNL today. Monitor BP per protocol. Dr. Limon aware of patient and agrees with plan. 7. Anticipate ?
[2023-10-09] MEDS: LACTATED RINGERS 1000 ML 1,000 ML 900 ML IV (22:18)
[2023-10-09] MEDS: OXYTOCIN 30 unit/500 ML in NS 30 UNIT/500 ML BAG 300 UNIT IVPB (23:29)
[2023-10-10] VITALS (13 sets, daily range): BP systolic 133–156; BP diastolic 74–96; PULSE 85–109; RESP 16–18; TEMP 36.6–37; O2SAT 96–97
[2023-10-10] MEDS: LIDOCAINE 1 % PF 30 ML INJECTION (00:15)
[2023-10-10] MEDS: miSOPROStoL 800 MCG/4 TABLET PR (00:25)
--- NOTE | 2023-10-10 01:12 | W.PM.OBVAGDE ---
OB Procedure Vag Delivery Mother Details Mother Details: Jazzmine is a 32 year-old, 2, now Para 1011, admitted on 10/09/23 at 37 0/7 weeks gestation. : 2 Para: 1 Weeks Gestation: 37.0 Admission Date: 10/09/23 Additional Details Amniotic Membrane Status: SROM Amniotic Membrane Rupture Date: 10/10/23 Amniotic Membrane Rupture Time: 17:35 Amniotic Membrane Fluid Description: Clear Analgesia/Anesthesia Type: Local and Nitrous Oxide Waterbirth: No Pitcoin: Yes ([facility] only) Intrapartal Events: Labor Induction Induction Method: per misoprostol protocol Labor Onset: 18:49 Complete: 21:30 Pushin:32 (Adequate pushing at 2305) Heart: heart tones during second stage were reassuring throughout with moderate variability and stable baseline. Notable decelerations evident toward the end of pushing with good return to baseline and terminal bradycardia. Delivery Details Delivery Date: 10/09/23 Delivery Time: 23:28 Route of delivery: Gender: Male Viability: Alive; Heart Rate Present Position at Delivery: OA Delivery Details: Patient was admitted for induction of labor for pre-eclampsia without severe features after successful ECV this morning. She received 2 doses of cytotec for induction before spontaneous rupture of membranes and progressed normally on her own. SROM noted at 1735 with clear fluid. She labored in the tub, moved to the large tub, and tried nitrous for pain relief. Patient was complete at 2130 and pushing at 2132 for a few pushes before she became very panicky with intense back pain and felt she could no longer push. She was in and out of the bed, squatting, and changing positions frequently due to intense back pain. At this time, she requested something for pain and said she could not do it without. Anesthesia was called at 2212. Counter pressure was used to help alleviate some of the discomfort during contractions and she continued frequent position changes. She was aware that in order to get an epidural she had to be able to sit through it. At about 2305, after being encouraged to try to push through it, she found a position on the bed that she was able to be supported and encouraged to push. She then pushed very well. Anesthesia arrived after the patient had been pushing and patient declined pain medication. of a viable male at 2328 in semi-fowlers on the bed. Vertex delivered OA with nuchal cord easily reduced. Compound right hand was entangled in cord and on chin at time of delivery. No shoulder. Body delivered easily and without incident. passed to mothers abdomen with a vigorous cry. Cord was clamped and cut at > 5 minutes. APGARS were 8 at one minute and 8 at five minutes respectively. Mouth was bulb suctioned. Intact placenta with a 3 vessel cord delivered spontaneously at 2347. Abnormal placenta with velamentous cord and marginal insertion into amniotic sac with vessels running along the amniotic membrane. Sent to pathology. Fundus firm. 2nd degree extending up right labia and bilateral sulcus tears identified and repaired in typical fashion. QBL 500 cc. Mother and baby stable; mother plans to breastfeed. weight pending. 1 Minute Interval Total Score: 8 5 Minute Interval Total Score: 8 Additional Details Shoulder Dystocia: No Placenta Delivery Time: 23:47 Placental Delivery Description: Spontaneous Delivery repair: Vicryl Procedure Done: Global Blood Loss: 500 Laceration: Perineal - 2nd Degree (extended up right labia and bilateral sulcus tears) Blood Loss Measurement Type: QBL Bakri Used: No Sponge/Need Count Correct: Yes Cord Vessel Description: 3 Vessels, Nuchal Cord, Loose and Reduced Event Summary Status: Mother and infant were stable after delivery. Disposition: floor
[2023-10-10] MEDS: ACETAMINOPHEN 500 MG TABLET 1000 MG PO (05:27)
[2023-10-10 07:13] LABS: Hematocrit 31.8 % (33.0-51.0); Hemoglobin* 10.8 gm/dL (12.0-16.0); Mean Corpuscular HGB Conc 34 gm/dL (32-36); Mean Corpuscular Hemoglobin 30 pg (26-34); Mean Corpuscular Volume 89 fL (80-100); Red Blood Count 3.58 m/uL (4.00-5.20)
[2023-10-10 07:30] LABS: Aspartate Amino Transferase* 58 U/L (12-35); Creatinine* 0.5 mg/dL (0.5-1.5); Est. Creatinine Clearance* 154.02; Estimated Glomerular Filt Rate 129 ml/min
[2023-10-10 07:31] LABS: Alanine Aminotransferase* 24 U/L (4-35)
[2023-10-10 07:46] LABS: Platelet Count* 113 K/uL (140-440); Slide Review Reflex Yes
[2023-10-10 07:47] LABS: Slide Review Acceptable Review (Acceptable)
--- NOTE | 2023-10-10 09:40 | P.OBPN_ITS ---
OB - PN:Subj Subjective Date Seen: 10/10/23 Patient comments OB post-: no complaints and pain well controlled [place] status: and doing well Narrative: Jazzmine is a 32 y.o. who was admitted to [facility] for induction of labor for mild preeclampsia.? She had an uncomplicated NVD.? ?? The patient feels well.? The pain is well controlled with current medications.? She has no new complaints.? She is breast feeding and reports things are going well.? the patient has done well.? Vitals have been stable.? She has remained afebrile.? Has a good appetite, is tolerating a general diet.? She is voiding without difficulty.? She is passing gas and has not had a bowel movement.? She is ambulating and denies any dizziness.? Has Small amount of rubra lochia.? OB - PN: Obj Exam Physical Exam: Vital signs: Temp Pulse Resp BP Pulse Ox O2 Del Method 98.2 F 102 H 16 133/93 H 97 Room Air 10/10/23 08:06 10/10/23 08:06 10/10/23 08:06 10/10/23 08:06 10/10/23 08:06 10/10/23 08:06 Narrative: GENERAL APPEARANCE:? normal affect, alert, no distress? MOOD:? appropriate? HEENT: normocephalic, neck supple, full ROM? CHEST:? Symmetrical chest wall movement.? Normal respiratory effort.? Clear to auscultation ? HEART:? regular rate and rhythm? ABDOMEN:? soft, non-tender. Uterine fundus is firm, at Umbilicus, Midline and is appropriate for the stage of recovery.? Bowel sounds present.? PERINEUM:? no edema of the perineum, there is a 2nd degree laceration that is healing well.? EXTREMITIES:? normal and no edema? OB - PN: Obj Data Labs Labs: Laboratory Results - last 24 hr 10/09/23 10/10/23 08:15 07:05 WBC 18.10 H RBC 3.58 L Hgb 10.8 L Hct 31.8 L MCV 89 MCH 30 MCHC 34 Plt Count 113 L Diff Slide Review Acceptable Review Creatinine 0.5 Estimated Creat Clear 154.02 Estimated GFR 129 AST 58 H ALT 24 Blood Type B Positive Antibody Screen NEGATIVE OB - PN: A/P Delivery Assessment and Plan (1) Encounter for induction of labor: Status: Acute (2) Pre-eclampsia: Status: Acute (3) care and examination immediately after delivery: Status: Acute (4) Lactating mother: Status: Acute Plan day: 1 Plan: routine care Comments: G 2 P 1 status post uncomplicated NVD??? 1.? Continue route PP cares? 2.? .? May see if desired? 3.? Anticipate discharge home tomorrow? 4. ?Acute anemia.? Iron supplement ordered. 5. Continue monitoring per protocol for mild preeclampsia diagnosis
[2023-10-10] MEDS: FERROUS SULFATE 325 MG TABLET 650 MG PO (10:32)
[2023-10-10] MEDS: LORATADINE 10 MG TABLET PO (10:41)
[2023-10-10] MEDS: SERTRALINE 50 MG TABLET PO (10:41)
[2023-10-10 21:13] LABS: Hematocrit 30.1 % (33.0-51.0); Hemoglobin* 10.2 gm/dL (12.0-16.0); Mean Corpuscular HGB Conc 34 gm/dL (32-36); Mean Corpuscular Hemoglobin 30 pg (26-34); Mean Corpuscular Volume 90 fL (80-100); Platelet Count* 113 K/uL (140-440); Red Blood Count 3.35 m/uL (4.00-5.20); White Blood Count* 12.47 K/uL (4.50-11.00)
[2023-10-10] MEDS: NIFEdipine 30 MG TAB.ER.24 PO (21:21)
[2023-10-10 21:34] LABS: Slide Review Reflex No
[2023-10-10 21:39] LABS: Alanine Aminotransferase* 28 U/L (4-35); Aspartate Amino Transferase* 58 U/L (12-35); Blood Urea Nitrogen* 8 mg/dL (5-24); Creatinine* 0.5 mg/dL (0.5-1.5); Est. Creatinine Clearance* 154.02; Estimated Glomerular Filt Rate 129 ml/min
--- NOTE | 2023-10-10 21:40 | PM.OBPNVD1 ---
OB - PN:Subj Subjective Time Seen by Provider: 21:40 Date Seen: 10/10/23 Narrative: Jazzmine has had elevated blood pressures since delivery with most of her diastolic readings in the 90's. Her last BP was 143/93. Consulted with Dr. Kim and she recommended we start BP medications and recommended repeat labs now. OB - PN: Obj Exam Physical Exam: Vital signs: Temp Pulse Resp BP Pulse Ox O2 Del Method 97.9 F 93 18 143/93 H 97 Room Air 10/10/23 20:32 10/10/23 20:32 10/10/23 20:32 10/10/23 20:32 10/10/23 20:32 10/10/23 20:32 OB - PN: Obj Data Labs Labs: Laboratory Results - last 24 hr 10/10/23 10/10/23 07:05 21:07 WBC 18.10 H 12.47 H RBC 3.58 L 3.35 L Hgb 10.8 L 10.2 L Hct 31.8 L 30.1 L MCV 89 90 MCH 30 30 MCHC 34 34 Plt Count 113 L 113 L Diff Slide Review Acceptable Review Creatinine 0.5 Estimated Creat Clear 154.02 Estimated GFR 129 AST 58 H ALT 24 OB - PN: A/P Delivery Assessment and Plan (1) Pre-eclampsia: Status: Acute (2) care and examination immediately after delivery: Status: Acute (3) Lactating mother: Status: Acute Plan day: 1 Plan: routine care Comments: Repeat Preeclampsia labs now and start Nifedipine ER 30mg daily now. Monitor per protocol for worsening symptoms.
[2023-10-11] VITALS (7 sets, daily range): BP systolic 130–156; BP diastolic 89–103; PULSE 72–86; RESP 16–18; TEMP 36.6–37.3; O2SAT 97–98
[2023-10-11 00:33] LABS: Rapid Plasma Reagin (RPR) Non Reactive (Non Reactive)
[2023-10-11] MEDS: IBUPROFEN 600 MG TABLET PO ×2 (05:17→17:44)
--- NOTE | 2023-10-11 07:13 | P.DS_ITS ---
Documented by User: Mary Green CNM 10/11/23 09:05 DS: Providers Provider Date Seen: 10/11/23 Date of admission: 10/09/23 07:34 Primary care physician: Not a Local Provider Admitting Clinician: Lexus Burden CNM Attending Physician on discharge: Lexus Burden CNM, Charles NICKERSON DS: Diagnosis Discharge Diagnosis (1) care and examination immediately after delivery: Status: Acute (2) Pre-eclampsia: Status: Acute (3) Lactating mother: Status: Acute (4) Depression: Status: Acute (5) Severe anxiety: Status: Acute Exam Narrative: Exam Narrative: GENERAL APPEARANCE:? normal affect, alert, no distress MOOD:? appropriate CHEST:? clear to auscultation HEART:? regular rate and rhythm ABDOMEN:? soft, non-tender the uterine fundus is 1 cm below Umbilicus, Midline and is appropriate for the stage of recovery. PERINEUM:? mild edema of the perineum, there is a Perineal Laceration that is approximated and appears to be healing appropriately.. EXTREMITIES:? normal and minimal edema Const: Vital Signs, click to edit/add: Vital Signs - 24 hr 10/10/23 08:06 10/10/23 11:31 10/10/23 16:03 Temperature 98.2 F 98.1 F Pulse Rate [Pulse Oximeter] 102 H 102 H 95 Respiratory Rate 16 Blood Pressure [Le ft Arm] 133/93 H 134/87 139/90 H Pulse Oximetry 97 97 96 Oxygen Delivery Me thod Room Air Room Air Room Air 10/10/23 20:32 10/10/23 23:36 10/11/23 03:58 Temperature 97.9 F 98.4 F 98 F Pulse Rate [Pulse Oximeter] 93 98 86 Respiratory Rate 18 16 16 Blood Pressure [Le ft Arm] 143/93 H 143/91 H 134/89 Pulse Oximetry 97 96 97 Oxygen Delivery Me thod Room Air Room Air Room Air Documenting provider has reviewed patient's vital signs: yes OB - DS: Summary Hospital Course Hospital Course: Jazzmine is a 32 y.o. G 2 P 1011 who was admitted to [facility] for IOL post successful version. she received some misoprostol and proceeded to actively labor on her own.? She had a NVD that was uncomplicated. The patient feels well.? The pain is well controlled with current medications.? She has no new complaints.? She is breast feeding and reports things are going okay, but with some difficulty with latching. She has started using a nipple sheild. the patient has done well.? Her blood pressure did increase into the mild to moderate range and she was started on Nifedipine 30mg daily and currently are in the 130s/80s range. Vitals have been stable.? She has remained afebrile.? Has a good appetite, is tolerating a general diet.? She is voiding without difficulty.? She is passing gas and has not had a bowel movement.? She is ambulating and denies any dizziness.? Has small amount of rubra lochia. She is planning for prevention.? ?? Problems: preeclampsia with mild range HTN, stable gestational thrombocytopenia with platelets of 113, difficulty with latching for her baby.? ?? plan:? Discharge home with baby.? Follow up in 2 weeks and 6 weeks.? , may see if needed? Hgb 10.2. ? Preeclampsia-Has a cuff at home. Instructed to check blood pressure twice daily and report for BP equivalent or greater than 140/90, ELLIOTT not relieved with tylenol, hydration and rest, vision changes or right upper quadrant abdominal pain. Nifedipine increased to 60mg daily. Labs stable Follow up in 3-5 days? ? ? Peripartum Data Infant delivery method: Vaginal Laceration description: Perineal - 2nd Degree (with right labial extension) Episiotomy description: None Procedures: Procedures Operation Date: 10/09/23 09:15 <No data on this case meets the specified criteria> complications: other (Preeclampsia-hypertension, started on Nifedipine 30mg daily) Gender: Male Discharge Plan: Home Status at Discharge Functional status at discharge: independent ambulation Overall status at discharge: patient is progressing back to baseline Time Spent with Patient Time attestation: Total time spent providing and/or coordinating discharge services: Time spent: Less than 30 minutes Discharge Plan Discharge Disposition: Home, Self-Care Date of Admission: 10/09/23 07:34 Attending Provider on Discharge: Mary Green Primary Care Provider: Provider,Not a Local Condition: Stable Anticipated Discharge Date/Time: 10/11/23 12:00 Discharge Medications: New acetaminophen 500 mg Tablet 1,000 mg PO Q6H PRNQty: 0 0RF docusate sodium 100 mg Capsule 100 mg PO DAILY Qty: 90 0RF ibuprofen 600 mg Tablet 600 mg PO Q6H PRNQty: 60 0RF sertraline 50 mg Tablet 50 mg PO DAILY Qty: 0 0RF nifedipine 60 mg tablet extended release 24hr 60 mg PO DAILY Qty: 30 1RF Continued loratadine [Claritin] 10 mg tablet 10 mg PO QDAY PRN calcium polycarbophil [Fiber (calcium polycarbophil)] 625 mg tablet 1,250 mg PO QDAY prenat.vits,mejia,[id number]-jylem Tablet 1 tab PO QDAY Bony Probiotic 14 billion cell capsule 1 cell PO DAILY Algal Putnam-3 DHA 200 mg capsule 200 mg PO DAILY sertraline 50 mg tablet 50 mg PO DAILY Qty: 90 2RF Discharge Orders: Discharge Order (Routine); Ordered 10/11/23 Ordered By: Lexus Burden Patient Education: OB Over the Counter Medication Information, OB Vaginal/Breast Feeding Additional Instructions: Discharge instructions were reviewed with the patient including signs and symptoms of infection and home going medications Nothing vaginally for 6 weeks: no tampons or intercourse Do not drive while taking narcotic pain medication(s) Off Work or School for 8 weeks Symptoms to report to doctor: * Bleeding that saturates more than one pad per hour * Passing clots larger than the size of a golf ball * Pain not relieved by prescribed medication * Fever above 100.4 degrees Fahrenheit * A foul vaginal odor * Difficulty in emotions, mood, and functions * Thoughts of hurting yourself and/or * Painful, reddened area in your breast * Any drainage, redness, or tenderness in your IV/epidural site * Severe headache that doesn't improve after taking medications * Changes in vision, including temporary loss of vision, blurred vision, and/or light sensitivity * Upper abdominal pain (usually under ribs on the right side) * Decrease in urination or painful, frequent urinating * Chest pain * Shortness of breath * Tenderness or pain with redness and/swelling in the calf(s) of your leg [facility] check?3-5 days Call with BP greater than or equal to 160/110, or consistently above 140/90s on meds 2-week visit: discuss infant feeding concerns, review control options and screen for anxiety/depression. 6-week visit for an annual exam. consultation services are available to all mothers and babies for the first year after delivery.? To make an appointment, please call [phone]. Activity Level: Activity as Tolerated Discharge Diet: Regular Follow Up Appointments: [facility] [Provider Group] Provider,Not a Local [Primary Care Provider] - Forms: [facility] Info Instructions Documented by User: Lexus Burden CNM 10/11/23 08:42 DS: Diagnosis Discharge Diagnosis (1) care and examination immediately after delivery: Status: Acute (2) Pre-eclampsia: Status: Acute (3) Lactating mother: Status: Acute (4) Depression: Status: Acute (5) Severe anxiety: Status: Acute OB - DS: Summary Hospital Course Hospital Course: Jazzmine is a 32 y.o. G 2 P 1011 who was admitted to [facility] for IOL post successful version. she received some misoprostol and proceeded to actively labor on her own.? She had a NVD that was uncomplicated. The patient feels well.? The pain is well controlled with current medications.? She has no new complaints.? She is breast feeding and reports things are going okay, but with some difficulty with latching. She has started using a nipple sheild. the patient has done well.? Her blood pressure did increase into the mild to moderate range and she was started on Nifedipine 30mg daily and currently are in the 130s/80s range. Vitals have been stable.? She has remained afebrile.? Has a good appetite, is tolerating a general diet.? She is voiding without difficulty.? She is passing gas and has not had a bowel movement.? She is ambulating and denies any dizziness.? Has small amount of rubra lochia. She is planning for prevention.? ?? Problems: preeclampsia with mild range HTN, stable gestational thrombocytopenia with platelets of 113, difficulty with latching for her baby.? ?? plan:? Discharge home with baby.? Follow up in 2 weeks and 6 weeks.? , may see if needed? Hgb 10.2. ? Preeclampsia-Has a cuff at home. Instructed to check blood pressure twice daily and report for BP equivalent or greater than 140/90, ELLIOTT not relieved with tylenol, hydration and rest, vision changes or right upper quadrant abdominal pain. Nifedipine increased to BID. Labs stable Follow up in 3-5 days? ? ? Discharge Plan Discharge Disposition: Home, Self-Care Date of Admission: 10/09/23 07:34 Attending Provider on Discharge: Mary Green Primary Care Provider: Provider,Not a Local Condition: Stable Anticipated Discharge Date/Time: 10/11/23 12:00 Discharge Medications: New acetaminophen 500 mg Tablet 1,000 mg PO Q6H PRNQty: 0 0RF docusate sodium 100 mg Capsule 100 mg PO DAILY Qty: 90 0RF ibuprofen 600 mg Tablet 600 mg PO Q6H PRNQty: 60 0RF sertraline 50 mg Tablet 50 mg PO DAILY Qty: 0 0RF nifedipine 60 mg tablet extended release 24hr 60 mg PO DAILY Qty: 30 1RF Continued loratadine [Claritin] 10 mg tablet 10 mg PO QDAY PRN calcium polycarbophil [Fiber (calcium polycarbophil)] 625 mg tablet 1,250 mg PO QDAY prenat.vits,mejia,zjd-uchd-[id number] Tablet 1 tab PO QDAY Bony Probiotic 14 billion cell capsule 1 cell PO DAILY Algal Putnam-3 DHA 200 mg capsule 200 mg PO DAILY sertraline 50 mg tablet 50 mg PO DAILY Qty: 90 2RF Discharge Orders: Discharge Order (Routine); Ordered 10/11/23 Ordered By: Lexus Burden Patient Education: OB Over the Counter Medication Information, OB Vaginal/Breast Feeding Additional Instructions: Discharge instructions were reviewed with the patient including signs and symptoms of infection and home going medications Nothing vaginally for 6 weeks: no tampons or intercourse Do not drive while taking narcotic pain medication(s) Off Work or School for 8 weeks Symptoms to report to doctor: * Bleeding that saturates more than one pad per hour * Passing clots larger than the size of a golf ball * Pain not relieved by prescribed medication * Fever above 100.4 degrees Fahrenheit * A foul vaginal odor * Difficulty in emotions, mood, and functions * Thoughts of hurting yourself and/or * Painful, reddened area in your breast * Any drainage, redness, or tenderness in your IV/epidural site * Severe headache that doesn't improve after taking medications * Changes in vision, including temporary loss of vision, blurred vision, and/or light sensitivity * Upper abdominal pain (usually under ribs on the right side) * Decrease in urination or painful, frequent urinating * Chest pain * Shortness of breath * Tenderness or pain with redness and/swelling in the calf(s) of your leg [facility] for a BP check?3-5 days Call with BP greater than or equal to 160/110, or consistently above 140/90s on meds 2-week visit: discuss feeding concerns, review control options and screen for anxiety/depression. 6-week visit for an annual exam. consultation services are available to all mothers and babies for the first year after delivery.? To make an appointment, please call [phone]. Activity Level: Activity as Tolerated Discharge Diet: Regular Follow Up Appointments: [facility] [Provider Group] Provider,Not a Local [Primary Care Provider] - Forms: [facility] Info Instructions
[2023-10-11] MEDS: LORATADINE 10 MG TABLET PO (08:41)
[2023-10-11] MEDS: DOCUSATE SODIUM 100 MG CAPSULE PO (08:41)
[2023-10-11] MEDS: SERTRALINE 50 MG TABLET PO (08:41)
[2023-10-11] MEDS: NIFEdipine 30 MG TAB.ER.24 60 MG PO (09:46)
[2023-10-11] MEDS: ACETAMINOPHEN 500 MG TABLET 1000 MG PO (11:10)
[2023-10-11] MEDS: LABETALOL HCL 100 MG TABLET 200 MG PO (22:15)
[2023-10-11 22:59] LABS: Hematocrit 31.3 % (33.0-51.0); Hemoglobin* 10.4 gm/dL (12.0-16.0); Mean Corpuscular HGB Conc 33 gm/dL (32-36); Mean Corpuscular Hemoglobin 30 pg (26-34); Mean Corpuscular Volume 91 fL (80-100); Platelet Count* 124 K/uL (140-440); Red Blood Count 3.43 m/uL (4.00-5.20); White Blood Count* 10.41 K/uL (4.50-11.00)
[2023-10-11 23:00] LABS: Slide Review Reflex No
[2023-10-11 23:14] LABS: Alanine Aminotransferase* 31 U/L (4-35); Aspartate Amino Transferase* 49 U/L (12-35); Blood Urea Nitrogen* 9 mg/dL (5-24); Creatinine* 0.6 mg/dL (0.5-1.5); Est. Creatinine Clearance* 128.35; Estimated Glomerular Filt Rate 124 ml/min
[2023-10-12] VITALS (10 sets, daily range): BP systolic 123–156; BP diastolic 78–103; PULSE 80–98; RESP 16; TEMP 36.5–36.9; O2SAT 96–98
[2023-10-12] MEDS: FERROUS SULFATE 325 MG TABLET 650 MG PO (08:49)
[2023-10-12] MEDS: LABETALOL HCL 100 MG TABLET 200 MG PO (08:50)
[2023-10-12] MEDS: NIFEdipine 30 MG TAB.ER.24 60 MG PO (08:53)
[2023-10-12] MEDS: DOCUSATE SODIUM 100 MG CAPSULE PO (08:53)
[2023-10-12] MEDS: SERTRALINE 50 MG TABLET PO (08:54)
[2023-10-12] MEDS: LORATADINE 10 MG TABLET PO (08:54)
--- NOTE | 2023-10-12 09:48 | P.DS_ITS ---
DS: Providers Provider Date Seen: 10/12/23 Date of admission: 10/09/23 07:34 Primary care physician: Not a Local Provider Admitting Clinician: Lexus Burden CNM Attending Physician on discharge: Lexus Burden CNM Date of Discharge: 10/12/23 DS: Diagnosis Discharge Diagnosis (1) Lactating mother: Status: Acute (2) care and examination immediately after delivery: Status: Acute (3) Pre-eclampsia: Status: Acute (4) Severe anxiety: Status: Acute (5) Depression: Status: Acute Exam Narrative: Exam Narrative: GENERAL APPEARANCE:? normal affect, alert, no distress? MOOD:? appropriate? CHEST:? clear to auscultation and percussion? HEART:? regular rate and rhythm? ABDOMEN:? soft, non-tender the uterine fundus is U/2 and is appropriate for the stage of recovery.? PERINEUM:? mild edema of the perineum, there is a 2nd laceration that is healing well.? EXTREMITIES:? normal and no edema? Const: Vital Signs, click to edit/add: Vital Signs - 24 hr 10/11/23 11:12 10/11/23 15:51 10/11/23 16:35 Temperature 99.2 F 98.3 F Pulse Rate [Pulse Oximeter] 82 72 Respiratory Rate 16 18 Blood Pressure [Le ft Arm] 133/90 H 141/98 H 138/94 H Pulse Oximetry 98 98 Oxygen Delivery Me thod Room Air Room Air 10/11/23 21:35 10/11/23 21:50 10/12/23 01:02 Temperature 97.9 F 98.1 F Pulse Rate [Pulse Oximeter] 79 94 Respiratory Rate 16 16 Blood Pressure [Le ft Arm] 156/103 H 147/96 H 123/78 Pulse Oximetry 97 97 Oxygen Delivery Me thod Room Air Room Air 10/12/23 04:43 10/12/23 08:40 Temperature 97.7 F 98.1 F Pulse Rate [Pulse Oximeter] 80 98 Respiratory Rate 16 16 Blood Pressure [Le ft Arm] 131/88 134/91 H Pulse Oximetry 97 98 Oxygen Delivery Me thod Room Air Room Air Documenting provider has reviewed patient's vital signs: yes OB - DS: Summary Hospital Course Hospital Course: Jazzmine is a 32 year old G 2 P 1 at 37.0 weeks gestation that was admitted to the Center on 10/09/23 for IOL for Preeclampsia. She had an uncomplicated vaginal delivery. She delivered a viable male infant. She is breast feeding and feels it is going good. the patient has done well. Her pain is well controlled with current medications.? She has no new complaints.? Urinary output is adequate and she is voiding without difficulty.? Has a good appetite, is tolerating a general diet, is passing flatus, and has had a bowel movement.? Has scant amount of rubra lochia.? She is ambulating well. Blood pressures have been batter since adding Labetalol. Last reading was taken right before AM medications and was 134/91. Will plan to continue blood pressure monitoring today and discharge this evening if blood pressure remain stable on new medications. She is aware that if her blood pressures are not controlled with this dose of medication that we may consider an additional night inpatient. She has a blood pressure cuff at home and will continue to take her blood pressures BID. She is well aware of symptoms and BP readings to report. She will plan for a blood pressure check in the clinic on Saturday. She is on Sertraline and feels good on that dose. Reviewed in depth mood symptoms to report as she had a signi ficant mental health history. Peripartum Data Infant delivery method: Vaginal Laceration description: Perineal - 2nd Degree Episiotomy description: None Procedures: Procedures Operation Date: 10/09/23 09:15 <No data on this case meets the specified criteria> complications: none [place] Gender: Male Discharge Plan: Home Status at Discharge Functional status at discharge: independent ambulation Overall status at discharge: patient is progressing back to baseline Time Spent with Patient Time attestation: Total time spent providing and/or coordinating discharge services: Discharge Plan Discharge Disposition: Home, Self-Care Date of Admission: 10/09/23 07:34 Attending Provider on Discharge: Tri Martinez Primary Care Provider: Provider,Not a Local Condition: Stable Anticipated Discharge Date/Time: 10/12/23 16:00 Discharge Medications: New acetaminophen 500 mg Tablet 1,000 mg PO Q6H PRNQty: 0 0RF docusate sodium 100 mg Capsule 100 mg PO DAILY Qty: 90 0RF ibuprofen 600 mg Tablet 600 mg PO Q6H PRNQty: 60 0RF sertraline 50 mg Tablet 50 mg PO DAILY Qty: 0 0RF nifedipine 60 mg tablet extended release 24hr 60 mg PO DAILY Qty: 30 1RF labetalol 100 mg Tablet 200 mg PO BID 28 Days Qty: 112 1RF Continued loratadine [Claritin] 10 mg tablet 10 mg PO QDAY PRN calcium polycarbophil [Fiber (calcium polycarbophil)] 625 mg tablet 1,250 mg PO QDAY prenat.vits,mejia,qjl-fbsn-mrxsn Tablet 1 tab PO QDAY Bony Probiotic 14 billion cell capsule 1 cell PO DAILY Algal [place]-3 DHA 200 mg capsule 200 mg PO DAILY sertraline 50 mg tablet 50 mg PO DAILY Qty: 90 2RF Discharge Orders: Discharge Order (Routine); Ordered 10/12/23 Ordered By: Tri Martinez Patient Education: OB Over the Counter Medication Information, OB Vaginal/Breast Feeding Additional Instructions: Discharge instructions were reviewed with the patient including signs and symptoms of infection and home going medications Nothing vaginally for 6 weeks: no tampons or intercourse Do not drive while taking narcotic pain medication(s) Off Work or School for 8 weeks Symptoms to report to doctor: * Bleeding that saturates more than one pad per hour * Passing clots larger than the size of a golf ball * Pain not relieved by prescribed medication * Fever above 100.4 degrees Fahrenheit * A foul vaginal odor * Difficulty in emotions, mood, and functions * Thoughts of hurting yourself and/or * Painful, reddened area in your breast * Any drainage, redness, or tenderness in your IV/epidural site * Severe headache that doesn't improve after taking medications * Changes in vision, including temporary loss of vision, blurred vision, and/or light sensitivity * Upper abdominal pain (usually under ribs on the right side) * Decrease in urination or painful, frequent urinating * Chest pain * Shortness of breath * Tenderness or pain with redness and/swelling in the calf(s) of your leg Follow [facility] for a BP check?3-5 days Call with BP greater than or equal to 160/110, or consistently above 140/90s on meds 2-week visit: discuss feeding concerns, review control options and screen for anxiety/depression. 6-week visit for an annual exam. consultation services are available to all mothers and babies for the first year after delivery.? To make an appointment, please call [phone]. Activity Level: Activity as Tolerated Discharge Diet: Regular Follow Up Appointments: [facility] [Provider Group] Provider,Not a Local [Primary Care Provider] - Forms: [employer] Info Instructions
[2023-10-12] MEDS: LABETALOL HCL 100 MG TABLET 300 MG PO ×2 (15:30→21:07)
[2023-10-12] MEDS: NIFEdipine 30 MG TAB.ER.24 PO (21:07)
[2023-10-12] MEDS: IBUPROFEN 600 MG TABLET PO (22:17)
[2023-10-13 03:47] VITALS: BP 135/92
--- NOTE | 2023-10-13 08:11 | P.DS_ITS ---
DS: Providers Provider Date Seen: 10/13/23 Date of admission: 10/09/23 07:34 Primary care physician: Not a Local Provider Admitting Clinician: Lexus Burden CNM Attending Physician on discharge: Lexus Burden CNM Date of Discharge: 10/13/23 DS: Diagnosis Discharge Diagnosis (1) Lactating mother: Status: Acute (2) care and examination immediately after delivery: Status: Acute (3) Pre-eclampsia: Status: Acute (4) OCD (obsessive compulsive disorder): Status: Acute (5) Depression: Status: Acute (6) Severe anxiety: Status: Acute Exam Narrative: Exam Narrative: GENERAL APPEARANCE:? normal affect, alert, no distress? MOOD:? appropriate? CHEST:? clear to auscultation and percussion? HEART:? regular rate and rhythm? ABDOMEN:? soft, non-tender the uterine fundus is U/2 and is appropriate for the stage of recovery.? PERINEUM:? mild edema of the perineum, there is a 2nd degree laceration that is healing well.? EXTREMITIES:? normal and no edema? Const: Vital Signs, click to edit/add: Vital Signs - 24 hr 10/12/23 08:40 10/12/23 11:16 10/12/23 11:31 Temperature 98.1 F Pulse Rate [Pulse Oximeter] 98 Respiratory Rate 16 Blood Pressure [Le ft Arm] 134/91 H 137/93 H 148/90 H Pulse Oximetry 98 Oxygen Delivery Me thod Room Air 10/12/23 13:30 10/12/23 15:30 10/12/23 16:35 Temperature 98.0 F Pulse Rate [Pulse Oximeter] 86 88 Respiratory Rate 16 Blood Pressure [Le ft Arm] 137/90 H 149/92 H 134/92 H Pulse Oximetry 96 Oxygen Delivery Me thod Room Air 10/12/23 21:05 10/12/23 22:00 10/13/23 03:47 Temperature 98.4 F Pulse Rate [Pulse Oximeter] Respiratory Rate 16 Blood Pressure [Le ft Arm] 156/103 H 136/88 135/92 H Pulse Oximetry Oxygen Delivery Me thod Room Air Documenting provider has reviewed patient's vital signs: yes OB - DS: Summary Hospital Course Hospital Course: Jazzmine is a 32 year old G 2 P 1 at 37.0 weeks gestation that was admitted to the Center on 10/09/23 for IOL for Preeclampsia. She had an uncomplicated vaginal delivery. She delivered a viable male . She is breast feeding and feels it is going good. the patient has done well. Her pain is well controlled with current medications.? She has no new complaints.? Urinary output is adequate and she is voiding without difficulty.? Has a good appetite, is tolerating a general diet, is passing flatus, and has had a bowel movement.? Has scant amount of rubra lochia.? She is ambulating well. Blood pressures have been consistently 130-140/80-90's. Medications were changed yesterday to Nifedipine 60mg in the am and 30mg HS and 300mg Labetalol TID. She states that she feels better on these doses of medications. Consulted with DR. Bhakta and reviewed her blood pressures. She recommended increasing dose of Labetalol to 400mg TID. She is to be seen tomorrow (Saturday) in the clinic for a blood pressure check. She has a blood pressure cuff at home and will continue to take her blood pressures BID. She is well aware of symptoms and BP readings to report. She is on Sertraline and feels good on that dose. Reviewed in depth mood symptoms to report as she had a significant mental health history. Peripartum Data Infant delivery method: Vaginal Laceration description: Perineal - 2nd Degree Episiotomy description: None Procedures: Procedures Operation Date: 10/09/23 09:15 <No data on this case meets the specified criteria> complications: none Infant Gender: Male Infant Discharge Plan: Home Status at Discharge Functional status at discharge: independent ambulation Overall status at discharge: patient is progressing back to baseline Time Spent with Patient Time attestation: Total time spent providing and/or coordinating discharge services: Discharge Plan Discharge Disposition: Home, Self-Care Date of Admission: 10/09/23 07:34 Attending Provider on Discharge: Tri Martinez Primary Care Provider: Provider,Not a Local Condition: Stable Anticipated Discharge Date/Time: 10/13/23 12:00 Discharge Medications: New acetaminophen 500 mg Tablet 1,000 mg PO Q6H PRNQty: 0 0RF docusate sodium 100 mg Capsule 100 mg PO DAILY Qty: 90 0RF ibuprofen 600 mg Tablet 600 mg PO Q6H PRNQty: 60 0RF sertraline 50 mg Tablet 50 mg PO DAILY Qty: 0 0RF nifedipine 60 mg tablet extended release 24hr 60 mg PO DAILY Qty: 30 1RF nifedipine 30 mg Tablet Extended Release 24hr 30 mg PO HS Qty: 60 0RF labetalol 100 mg Tablet 400 mg PO TID 28 Days Qty: 336 0RF Continued loratadine [Claritin] 10 mg tablet 10 mg PO QDAY PRN calcium polycarbophil [Fiber (calcium polycarbophil)] 625 mg tablet 1,250 mg PO QDAY prenat.vits,mejia,[id number]-[id number] Tablet 1 tab PO QDAY Bony Probiotic 14 billion cell capsule 1 cell PO DAILY Algal [place]-3 DHA 200 mg capsule 200 mg PO DAILY sertraline 50 mg tablet 50 mg PO DAILY Qty: 90 2RF Discharge Orders: Discharge Order (Routine); Ordered 10/13/23 Ordered By: Tri Martinez Patient Education: OB Over the Counter Medication Information, OB Vaginal/Breast Feeding Additional Instructions: Discharge instructions were reviewed with the patient including signs and symptoms of infection and home going medications Nothing vaginally for 6 weeks: no tampons or intercourse Do not drive while taking narcotic pain medication(s) Off Work or School for 8 weeks Symptoms to report to doctor: * Bleeding that saturates more than one pad per hour * Passing clots larger than the size of a golf ball * Pain not relieved by prescribed medication * Fever above 100.4 degrees Fahrenheit * A foul vaginal odor * Difficulty in emotions, mood, and functions * Thoughts of hurting yourself and/or * Painful, reddened area in your breast * Any drainage, redness, or tenderness in your IV/epidural site * Severe headache that doesn't improve after taking medications * Changes in vision, including temporary loss of vision, blurred vision, and/or light sensitivity * Upper abdominal pain (usually under ribs on the right side) * Decrease in urination or painful, frequent urinating * Chest pain * Shortness of breath * Tenderness or pain with redness and/swelling in the calf(s) of your leg [facility] for a BP check?on Saturday Call with BP greater than or equal to 160/110, or consistently above 140/90s on meds. 2-week visit: discuss infant feeding concerns, review control options and screen for anxiety/depression. 6-week visit for an annual exam. consultation services are available to all mothers and babies for the first year after delivery.? To make an appointment, please call [phone]. Activity Level: Activity as Tolerated Discharge Diet: Regular Follow Up Appointments: [facility] [Provider Group] Provider,Not a Local [Primary Care Provider] - Forms: [employer] Info Instructions
[2023-10-13 08:14] VITALS: BP 138/86; PULSE 104; RESP 18; TEMP 36.7; O2SAT 97
[2023-10-13] MEDS: DOCUSATE SODIUM 100 MG CAPSULE PO (09:04)
[2023-10-13] MEDS: IBUPROFEN 600 MG TABLET PO (09:04)
[2023-10-13] MEDS: LABETALOL HCL 100 MG TABLET 300 MG PO (09:04)
[2023-10-13] MEDS: NIFEdipine 30 MG TAB.ER.24 60 MG PO (09:05)
[2023-10-13] MEDS: SERTRALINE 50 MG TABLET PO (09:05)
[2023-10-13 12:00] VITALS: BP 128/76
--- NOTE | 2023-10-13 12:51 | PC.NURSE ---
Nursing Care Hours: [id number] Pt this shift calm and cooperative, alert and oriented. No c/o pain, chest tightness, headache, or vision changes. Fundus firm and below umbilicus. Drinking and voiding. Appropriate with infant. IV already out, signed all forms and wheeled out to vehicle in stable condition with spouse and baby.
== END 2023-10-13 12:05 | disposition home or self-care (01) | DRG 560 ==
PROVIDERS: Advanced Practice Midwife; Admitting Provider Obstetrics & Gynecology; Visit Provider Advanced Practice Midwife
DX: O14.04 Mild to moderate pre-eclampsia, complicating childbirth (principal); O32.1XX0 Maternal care for breech presentation, not applicable or unspecified; O70.1 Second degree perineal laceration during delivery; O99.344 Other mental disorders complicating childbirth; F41.9 Anxiety disorder, unspecified; F42.9 Obsessive-compulsive disorder, unspecified; F32.A Depression, unspecified; O99.12 Other diseases of the blood and blood-forming organs and certain disorders involving the immune mechanism complicating childbirth; D69.6 Thrombocytopenia, unspecified; O90.81 Anemia of the puerperium; D64.9 Anemia, unspecified; O43.193 Other malformation of placenta, third trimester; Z37.0 Single live birth; Z3A.37 37 weeks gestation of pregnancy
CPT/HCPCS: 36415; 59200; 59412; 76815; 76819; 82565; 82570; 84156; 84450; 84460; 84520; 85025; 85027; 86592; 86850; 86900; 86901; 88307; A9270; J2001; J3105; J7120

== ENCOUNTER 2023-11-26 11:18 | Day surgery (SDC) | payer BC, MEDICAID, SELFPAY ==
[2023-11-26] VITALS (13 sets, daily range): BP systolic 136–162; BP diastolic 78–103; PULSE 64–111; RESP 16–20; TEMP 36.6–37.2; O2SAT 93–99; BMI 28.6
--- NOTE | 2023-11-26 11:55 | ED_ITS ---
HPI - Abdominal Pain General Chief Complaint: Abdominal Pain Stated Complaint: lower abdominal pain, 7 weeks post Time Seen by Provider: 11/26/23 11:42 History of Present Illness HPI narrative: This 33-year-old female comes in reporting lower abdominal pain that is been present over the last couple days. She does not report any constipation or altered bowel function. She does state that she has pain at the end of voiding urine. She does not report any fevers. She did deliver a baby without any complication about 7 weeks ago. This was her 1st child and she is currently . Related Data Home Medications ?Medication ?Instructions ?Recorded ?Confirmed Lactobacillus combo no.23 14 1 cell PO DAILY 05/01/22 11/26/23 billion cell capsule (Bony Probiotic) prenat.vits,mejia,[id number] 1 tab PO QDAY 05/01/22 11/26/23 loratadine 10 mg tablet (Claritin) 10 mg PO QDAY PRN 10/17/22 11/26/23 docosahexaenoic acid 200 mg 200 mg PO DAILY 04/15/23 11/26/23 capsule (Algal [place]-3 DHA) calcium polycarbophil 625 mg 1,250 mg PO QDAY 07/25/23 11/26/23 tablet (Fiber (calcium polycarbophil)) Previous Rx's ?Medication ?Instructions ?Recorded docusate sodium 100 mg capsule 100 mg PO DAILY #90 caps 10/11/23 sertraline 50 mg tablet 50 mg PO DAILY #0 tabs 10/11/23 Allergies Allergy/AdvReac Type Severity Reaction Status Date / Time pollen extracts Allergy Mild Verified 11/25/23 14:24 Review of Systems Status of ROS Reports: 10 or more systems reviewed and unremarkable except as noted in History and below Narrative Constitutional: No fevers, no weight gain or loss. Eyes: No discharge. No vision changes. HENT: No congestion, no sore throat, no ear pain. Cardiovascular: No chest pain, no palpitations. Respiratory: No shortness of breath, no wheezes, no cough. Gastrointestinal: No vomiting, no diarrhea. Lower abdominal pain as described above. Genitourinary: No dysuria, no hematuria. Musculoskeletal: Normal range of motion. Skin: No rashes, no pruritis. Neurological: No dizziness, weakness, sensory change, speech change. Endo/Heme/Allergies: No bruising or bleeding. No polydipsia. Pysch: no suicidality, no anxiety, no insomnia. All other systems reviewed and are negative. [facility] Medical History (Updated 11/26/23 @ 15:37 by Ulices Chaudhry MD) Successful external cephalic version Pre-eclampsia in third trimester ?O14.93 - Unspecified pre-eclampsia, third trimester (ICD-10) Pelvic pain affecting ?O26.899 - Other specified related conditions, unspecified trimester (ICD-10) ?R10.2 - Pelvic and perineal pain (ICD-10) Vaginal discomfort ?N94.9 - Unspecified condition associated with female genital organs and menstrual cycle (ICD-10) Velamentous insertion of umbilical cord ?O43.129 - Velamentous insertion of umbilical cord, unspecified trimester (ICD-10) Breech presentation ?O32.1XX0 - Maternal care for breech presentation, not applicable or unspecified (ICD-10) Incomplete miscarriage ?O03.4 - Incomplete spontaneous without complication (ICD-10) Alcohol use disorder in remission ?F10.91 - Alcohol use, unspecified, in remission (ICD-10) OCD (obsessive compulsive disorder) ?F42.9 - Obsessive-compulsive disorder, unspecified (ICD-10) Depression ?F32.A - Depression, unspecified (ICD-10) Surgical History History of partial surgical removal of vital pulp of tooth ?Z98.818 - Other dental procedure status (ICD-10) Family History Mother Ovarian cancer Paternal Grandmother Lung cancer Maternal Grandmother Alzheimers disease Social History Narrative: She is as of January 2022. 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 What is your current living situation?: I presently have a place to live Problems where you live: no known problems In the past 12 months, utilities in danger of being shut off: no In past 12 months, lack of transportation kept you from medical appts, meetings, work, or getting things needed for daily living: no In the past 12 mos, have been you worried that your food would run out before you had money to buy more?: never true In the past 12 mos, the food you bought just didn't last and you didn't have money to buy more?: never true Smoking Status: Never smoker Do you use any of these nicotine containing products: None How often do you have a drink containing alcohol: never How often do you have six or more drinks on one occasion: Never AUDIT-C Alcohol total score: 0 Non-prescribed substance use: denies use How often does anyone, including family, friends and others, physically hurt you : never How often does anyone, including family, friends and others, insult or talk down to you: never How often does anyone, including family, friends and others, threaten you with harm: never How often does anyone, including family, friends and others, scream or curse at you: never Little interest or pleasure in doing things: not at all Feeling down, depressed, or hopeless: not at all Exam Narrative: Exam Narrative: Constitutional: Well-developed, well-nourished, no acute distress. HEENT: Normocephalic, atraumatic. Neck: Normal range of motion. Nontender. Supple. Heart: Regular. No murmurs. Normal rate. Intact distal pulses. Lungs: Clear to auscultation. No chest discomfort. No wheezes, rhonchi, or rales. Abdomen: Normal bowel sounds. No rebound tenderness. Tenderness across the lower abdomen. Genitalia: Deferred. Back: No midline tenderness. Normal range of motion. Extremities: Normal range of motion. No injury. Skin: Intact. No rash. Warm. No erythema or pallor. Neurologic: No altered sensation. No weakness. Alert and oriented. Psychiatric: No suicidality. No anxiety or depression. No insomnia. Nursing notes and vitals signs are reviewed. Const: Vital Signs, click to edit/add: Vital Signs - 24 hr 11/26/23 11:21 11/26/23 15:15 Temperature 97.8 F Pulse Rate [Right Pulse Oximeter] 111 H 107 H Respiratory Rate 18 16 Blood Pressure [Ri ght Upper Arm] 142/85 H 136/103 H Pulse Oximetry 98 98 Oxygen Delivery Me thod Room Air Room Air Course Vital Signs Vital signs: Initial Vital Signs Temperature 97.8 F 11/26/23 11:21 Temperature Source Temporal Artery Scan 11/26/23 11:21 Pulse Rate 111 H 11/26/23 11:21 Pulse Rhythm Regular 11/26/23 11:21 Respiratory Rate 18 11/26/23 11:21 Blood Pressure 142/85 H 11/26/23 11:21 Blood Pressure Mean 104 11/26/23 11:21 Blood Pressure Position Sitting 11/26/23 11:21 Pulse Oximetry 98 11/26/23 11:21 Oxygen Delivery Method Room Air 11/26/23 11:21 Vital Signs Temperature 97.8 F 11/26/23 11:21 Pulse Rate 111 H 11/26/23 11:21 Respiratory Rate 18 11/26/23 11:21 Blood Pressure 142/85 H 11/26/23 11:21 Pulse Oximetry 98 11/26/23 11:21 Oxygen Delivery Method Room Air 11/26/23 11:21 Temperature 97.8 F 11/26/23 11:21 Pulse Rate 107 H 11/26/23 15:15 Respiratory Rate 16 11/26/23 15:15 Blood Pressure 136/103 H 11/26/23 15:15 Pulse Oximetry 98 11/26/23 15:15 Oxygen Delivery Method Room Air 11/26/23 15:15 MDM - Abdominal Pain MDM Narrative Medical decision making narrative: This patient comes in with abdominal pain and is 7 weeks . She shows microscopic hematuria on urinalysis. The patient did have a pelvic ultrasound which shows small amount of clot in the endometrium but it was noted that her appendix was visualized with obvious appendicitis. A CT scan of the abdomen and pelvis was then obtained and confirms this finding. I spoke with the surgeon on-call who will arrange for appendectomy. The patient did receive an IV dose of Zosyn. I also spoke with the OBGYN physician on-call who reviewed the ultrasound results and stated that the findings are not suspicious for retained products of conception or endometritis. Lab Data Labs: Lab Results 11/26/23 11/26/23 Range/Units 12:04 13:40 WBC 13.07 H (4.50-11.00) K/uL RBC 4.57 (4.00-5.20) m/uL Hgb 13.3 (12.0-16.0) gm/dL Hct 40.0 (33.0-51.0) % MCV 88 (80-100) fL MCH 29 (26-34) pg MCHC 33 (32-36) gm/dL RDW Coeff of Bogdan 12.3 (11.5-15.5) % Plt Count 230 (140-440) K/uL Neut % (Auto) 75.4 H (42.0-72.0) % Lymph % (Auto) 15.1 L (20-44) % [place] % (Auto) 8.9 (0.0-11.0) % Eos % (Auto) 0.2 (0.0-7.0) % Baso % (Auto) 0.2 (0.0-3.0) % Neut # (Auto) 9.90 H (1.7-7.0) K/uL Lymph # (Auto) 2.00 (0.90-2.90) K/uL [place] # (Auto) 1.20 H (0.00-0.90) K/UL Eos # (Auto) 0.00 (0.00-0.50) K/uL Baso # (Auto) 0.00 (0.00-0.30) K/uL Abs Immat Gran (auto) 0.00 (0.00-0.30) K/uL Imm/Tot Granulo (auto) 0.2 % Sodium 138 (135-149) mmol/L Potassium 3.8 (3.6-5.1) mmol/L Chloride 103 (96-114) mmol/L Carbon Dioxide 25 (20-32) mmol/L Anion Gap 10 (7-15) mEq/L BUN 12 (5-24) mg/dL Creatinine 0.8 (0.5-1.5) mg/dL Estimated Creat Clear 95.38 Estimated GFR 101 ml/min Glucose 107 (60-115) mg/dL Calcium 9.4 (8.4-10.6) mg/dL Urine Color Yellow (Yellow) Urine Appearance Slightly Cloudy A (Clear) Urine pH 7.0 (5.0-8.5) Ur Specific [place] 1.015 (1.000-1.030) Urine Protein Negative (Negative) Urine Glucose (UA) Negative (Negative) Urine Ketones Negative (Negative) Urine Blood 3+ A (Negative) Urine Nitrite Negative (Negative) Urine Bilirubin Negative (Negative) Urine Urobilinogen 0.2 (0.2-1.0) Ur Leukocyte Esterase Negative (Negative) Urine RBC >100 A (0-2) Urine WBC 0-2 (0-5) Ur Squamous Epith Cells None (None-Few) Urine Bacteria None (None) Imaging Data CT scan - abdomen: Radiologist's impression: 1. Dilated appendix measuring up to 1.7 centimeter with wall thickening is concerning for acute appendicitis. Trace amount of fluid is seen near the tip. 2. Mild thickening of the endometrium along the anterior left endometrium measuring up to 5 millimeter. This area is relatively avascular. Findings are nonspecific and may represent appearance versus blood clot, though retained products of conception can not be excluded. Consider continued attention on follow-up. Discharge Plan Discharge Clinical Impression: Acute appendicitis Patient Disposition: XFER to OR Condition: Unchanged Prescriptions: No Action loratadine [Claritin] 10 mg tablet 10 mg PO QDAY PRN calcium polycarbophil [Fiber (calcium polycarbophil)] 625 mg tablet 1,250 mg PO QDAY prenat.vits,mejia,[id number] Tablet 1 tab PO QDAY Bony Probiotic 14 billion cell capsule 1 cell PO DAILY Algal [place]-3 DHA 200 mg capsule 200 mg PO DAILY docusate sodium 100 mg Capsule 100 mg PO DAILY Qty: 90 0RF sertraline 50 mg Tablet 50 mg PO DAILY Qty: 0 0RF Follow Up/Referrals: Provider,Not a Local [Primary Care Provider] -
[2023-11-26 12:13] LABS: Appearance Urine Slightly Cloudy (Clear); Bilirubin Urine Negative (Negative); Blood Urine 3+ (Negative); Color Urine Yellow (Yellow); Glucose Urine Negative (Negative); Ketones Urine Negative (Negative); Leukocyte Esterase Urine Negative (Negative); Nitrite Urine Negative (Negative); Protein Urine Negative (Negative); Specific Gravity Urine 1.015 (1.000-1.030); Urobilinogen Urine 0.2 (0.2-1.0)
[2023-11-26 12:31] LABS: RBC Urine >100 (0-2); WBC Urine 0-2 (0-5)
--- NOTE | 2023-11-26 12:58 | CRLHL7_ITS ---
For Patients: As a result of the Century Cures Act, medical imaging exams and procedure reports are released immediately into your electronic medical record. You may view this report before your referring provider. If you have questions, please contact your health care provider. Indication: LOWER ABDOMINAL PAIN, 7 WEEKS POST Technique: Real-time sonographic images of the pelvis were obtained transabdominally and transvaginally utilizing grayscale, color, and Doppler imaging. Comparison: 10/07/2023 Findings: Uterus: Appearance: Normal. Position: Anteverted. Size: 9.1 x 4.8 x 6.2 cm. Endometrial stripe: 7 mm. Nonspecific mild thickening of the endometrium along the anterior left endometrium measuring up to 5 millimeter. Right ovary: Size: 4.1 x 2.0 x 1.8 cm. Appearance: Normal morphology. No masses. Preserved blood flow. Left ovary: Size: 2.3 x 1.5 x 2.2 cm. Appearance: Normal morphology. No masses. Preserved blood flow. Free fluid: None. Dilated appendix (blind-ending, tubular structure in the right lower quadrant of the abdomen) measuring up to 1.7 centimeter with wall thickening. Trace amount of fluid is seen near the tip. Impression: 1. Dilated appendix measuring up to 1.7 centimeter with wall thickening is concerning for acute appendicitis. Trace amount of fluid is seen near the tip. 2. Mild thickening of the endometrium along the anterior left endometrium measuring up to 5 millimeter. This area is relatively avascular. Findings are nonspecific and may represent appearance versus blood clot, though retained products of conception can not be excluded. Consider continued attention on follow-up. Dictated by Pedro March MD @ 11/26/2023 1:57:27 PM (Electronically Signed)
--- NOTE | 2023-11-26 13:31 | CRLHL7_ITS ---
For Patients: As a result of the Century Cures Act, medical imaging exams and procedure reports are released immediately into your electronic medical record. You may view this report before your referring provider. If you have questions, please contact your health care provider. Indication: PELVIC PAIN. F/U US Technique: CT abdomen/pelvis with IV contrast, 86 mL Isovue 370 Comparison: Same-day pelvic ultrasound report Findings: Lower thorax: Unremarkable Abdomen/pelvis: The liver, gallbladder and biliary system, spleen, pancreas, adrenal glands, kidneys, ureters, and bladder are unremarkable in appearance. The uterus and bilateral ovaries are within normal limits in appearance. There is no evidence of bowel obstruction. The appendix is dilated to approximately 1.6 centimeters with thickened tai measuring up to approximately 7 millimeters and moderate periappendiceal fat stranding inflammatory. No free fluid or free air. No abscess. No abdominopelvic lymphadenopathy. The vasculature is unremarkable. Soft tissue/musculoskeletal Tiny fat containing umbilical hernia. The osseous structures are unremarkable. Impression: Acute appendicitis. Recommend consultation with surgery for further management recommendations. Please note that all CT scans at this facility use dose modulation, iterative reconstruction, and/or weight-based dosing when appropriate to reduce radiation dose to as low as reasonably achievable. Dictated by Kolby Walker MD @ 11/26/2023 3:10:39 PM (Electronically Signed)
[2023-11-26 13:48] LABS: Basophils Percent Auto 0.2 % (0.0-3.0); Eosinophils Percent Auto 0.2 % (0.0-7.0); Hemoglobin* 13.3 gm/dL (12.0-16.0); Immature Granulocytes Pct Auto 0.2 %; Lymphocytes Percent Auto 15.1 % (20-44); Mean Corpuscular HGB Conc 33 gm/dL (32-36); Mean Corpuscular Hemoglobin 29 pg (26-34); Mean Corpuscular Volume 88 fL (80-100); Monocytes Percent Auto 8.9 % (0.0-11.0); Neutrophils Percent Auto 75.4 % (42.0-72.0); Platelet Count* 230 K/uL (140-440); RDW Coefficient of Variation % 12.3 % (11.5-15.5); Red Blood Count 4.57 m/uL (4.00-5.20); White Blood Count* 13.07 K/uL (4.50-11.00)
[2023-11-26 13:51] LABS: Slide Review Reflex No
[2023-11-26 14:04] LABS: Chloride* 103 mmol/L (96-114); Potassium* 3.8 mmol/L (3.6-5.1); Sodium* 138 mmol/L (135-149)
[2023-11-26 14:07] LABS: Anion Gap 10 mEq/L (7-15); Blood Urea Nitrogen* 12 mg/dL (5-24); Calcium* 9.4 mg/dL (8.4-10.6); Carbon Dioxide* 25 mmol/L (20-32); Creatinine* 0.8 mg/dL (0.5-1.5); Est. Creatinine Clearance* 95.38; Estimated Glomerular Filt Rate 101 ml/min; Glucose* 107 mg/dL (60-115)
[2023-11-26] MEDS: PIPERACILLIN/TAZOBACTAM 3.375 GM in 0.9 % SODIUM CHLORIDE Mini-bag 100 ML IVPB (16:25)
--- NOTE | 2023-11-26 16:58 | PM.GSHP ---
History of Present Illness History of Present Illness Date Seen: 11/26/23 Chief complaint: lower abdominal pain, 7 weeks post Narrative: Jazzmine Morgan is a 33 year old female who presented to the emergency department today with right lower quadrant pain over the past week. She states that when the pain came on she thought it was initially cramps related to needing to have a bowel movement or possibly related to having given 7 weeks ago, however her symptoms continued and became much worse last night and into today and she came in to be seen. She did have some discomfort when she urinates. She has had a mix of diarrhea as well as small firm stools. Because she thought the pain was related to constipation she did try MiraLax today but did not have any results from this. She has not had nausea or vomiting. She has not had a fever. She has never had pain like this before. Sitting up helps her pain. Standing makes the pain worse. [facility] Medical History (Updated 11/26/23 @ 15:37 by Ulices Chaudhry MD) Successful external cephalic version Pre-eclampsia in third trimester ?O14.93 - Unspecified pre-eclampsia, third trimester (ICD-10) Pelvic pain affecting ?O26.899 - Other specified related conditions, unspecified trimester (ICD-10) ?R10.2 - Pelvic and perineal pain (ICD-10) Vaginal discomfort ?N94.9 - Unspecified condition associated with female genital organs and menstrual cycle (ICD-10) Velamentous insertion of umbilical cord ?O43.129 - Velamentous insertion of umbilical cord, unspecified trimester (ICD-10) Breech presentation ?O32.1XX0 - Maternal care for breech presentation, not applicable or unspecified (ICD-10) Incomplete miscarriage ?O03.4 - Incomplete spontaneous without complication (ICD-10) Alcohol use disorder in remission ?F10.91 - Alcohol use, unspecified, in remission (ICD-10) OCD (obsessive compulsive disorder) ?F42.9 - Obsessive-compulsive disorder, unspecified (ICD-10) Depression ?F32.A - Depression, unspecified (ICD-10) Surgical History History of partial surgical removal of vital pulp of tooth ?Z98.818 - Other dental procedure status (ICD-10) Family History Mother Ovarian cancer Paternal Grandmother Lung cancer Maternal Grandmother Alzheimers disease Social History Narrative: She is as of January 2022. 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 What is your current living situation?: I presently have a place to live Problems where you live: no known problems In the past 12 months, utilities in danger of being shut off: no In past 12 months, lack of transportation kept you from medical appts, meetings, work, or getting things needed for daily living: no In the past 12 mos, have been you worried that your food would run out before you had money to buy more?: never true In the past 12 mos, the food you bought just didn't last and you didn't have money to buy more?: never true Smoking Status: Never smoker Do you use any of these nicotine containing products: None How often do you have a drink containing alcohol: never How often do you have six or more drinks on one occasion: Never AUDIT-C Alcohol total score: 0 Non-prescribed substance use: denies use How often does anyone, including family, friends and others, physically hurt you: never How often does anyone, including family, friends and others, insult or talk down to you: never How often does anyone, including family, friends and others, threaten you with harm: never How often does anyone, including family, friends and others, scream or curse at you: never Little interest or pleasure in doing things: not at all Feeling down, depressed, or hopeless: not at all Meds Home Medications and Allergies Home Medications ?Medication ?Instructions ?Recorded ?Confirmed ?Type Lactobacillus combo no.23 14 1 cell PO DAILY 05/01/22 11/26/23 History billion cell capsule (Bony Probiotic) prenat.vits,mejia,fti-shvb-ipkvw 1 tab PO QDAY 05/01/22 11/26/23 History loratadine 10 mg tablet (Claritin) 10 mg PO QDAY PRN 10/17/22 11/26/23 History docosahexaenoic acid 200 mg 200 mg PO DAILY 04/15/23 11/26/23 History capsule (Algal [place]-3 DHA) calcium polycarbophil 625 mg 1,250 mg PO QDAY 07/25/23 11/26/23 History tablet (Fiber (calcium polycarbophil)) Allergies Allergy/AdvReac Type Severity Reaction Status Date / Time pollen extracts Allergy Mild Verified 11/25/23 14:24 Exam Narrative: Exam Narrative: General appearance: Alert, cooperative, and in no distress Eyes: PERRLA, eye lids clear, and sclera white HENT Head: Normocephalic Ears: External ears normal Pulmonary: Clear to auscultation bilaterally Cardiovascular Heart: Tachycardic but regular rhythm Extremities: warm and well perfused Gastrointestinal Abdominal: No scars. Mildly protuberant. She is mildly tender in the right lower quadrant but with significant rebound. Musculoskeletal: Extremities: Upper: Both upper extremities have normal joint range of motion and intact strength. Lower: Both lower extremities have normal joint range of motion and intact strength. Skin: Normal skin color, texture, and turgor. Neurologic: No focal deficits Psychiatric: Alert, oriented, cooperative, normal affect. Const: Vital Signs, click to edit/add: Vital Signs - 24 hr 11/26/23 11:21 11/26/23 15:15 Temperature 97.8 F Pulse Rate [Right Pulse Oximeter] 111 H 107 H Respiratory Rate 18 16 Blood Pressure [Ri ght Upper Arm] 142/85 H 136/103 H Pulse Oximetry 98 98 Oxygen Delivery Me thod Room Air Room Air Results Results Labs: White blood cell count is 13. Electrolytes within normal limits UA without evidence of infection. Abdomen CT scan report/results: report reviewed and image reviewed Additional studies: CT scan abdomen pelvis: Impression: Acute appendicitis. Recommend consultation with surgery for further management recommendations. Please note that all CT scans at this facility use dose modulation, iterative reconstruction, and/or weight-based dosing when appropriate to reduce radiation dose to as low as reasonably achievable. Dictated by Kolby Walker MD @ 11/26/2023 3:10:39 PM Transvaginal pelvic ultrasound Impression: 1. Dilated appendix measuring up to 1.7 centimeter with wall thickening is concerning for acute appendicitis. Trace amount of fluid is seen near the tip. 2. Mild thickening of the endometrium along the anterior left endometrium measuring up to 5 millimeter. This area is relatively avascular. Findings are nonspecific and may represent appearance versus blood clot, though retained products of conception can not be excluded. Consider continued attention on follow-up. Dictated by Pedro March MD @ 11/26/2023 1:57:27 PM Progress Note:A&P Assessment and plan (1) Acute appendicitis: Status: Acute (2) Lactating mother: Status: Acute Plan The patient is a 33-year-old female with acute appendicitis. We discussed that appendectomy is the preferred treatment for this. This can most often be done laparoscopically. We discussed risks and benefits of the procedure including but not limited to bleeding, need for conversion to open, risk of injury to other structures, need for possible bowel resection, and abscess formation. The patient understands that the risk of abscess is higher if the appendix is perforated. For that reason, we generally keep patient is in the hospital on IV antibiotics until vital signs and white blood cell count had normalized. We also discussed recovery including 2 weeks of lifting restrictions. She is agreeable to proceed. We will plan on surgery urgently this evening. Of note, she did have thickened endometrium noted on ultrasound. This was discussed with OB. They are not concerned about retained products of conception or endometritis.
[2023-11-26] MEDS: LACTATED RINGERS 1000 ML 1,000 ML 100 ML IV (17:18)
[2023-11-26] MEDS: BUPIVACAINE 0.25% 30 ML INJECTION (18:15)
--- NOTE | 2023-11-26 18:16 | PM.GSPRC ---
Operative Note Date of procedure: 11/26/23 Pre-op diagnosis: Acute appendicitis Post-op diagnosis: 1. Acute appendicitis with fibrinous exudate and no obvious perforation 2. Right inguinal hernia (Amyand's) Type of Procedure: Laparoscopic appendectomy Indications: The patient is a 33-year-old female who presented to the emergency department with abdominal pain for several days. Workup revealed acute appendicitis. I recommended appendectomy and she agreed to proceed. Procedure Description: After discussing the risks and benefits of the procedure, the patient signed informed consent.? The operative site was marked and the patient was brought to the operating room and placed on the operating table in supine position.? Care was taken to pad the patient's pressure points.?? The patient was then intubated by anesthesia.?? The operative site was then prepped and draped in the usual sterile fashion.? A time-out was then performed. Entrance to the abdomen was obtained via Cummings technique below the umbilicus. A 12 mm port was placed in the abdomen was insufflated. 5 mm trocars were then placed under direct vision in the left upper and left lower quadrants. The patient was then placed in Trendelenburg position with the right side up. There was fat adherent to the abdominal wall in the right lower quadrant. This was peeled back and the appendix was visualized. This was stuck to the abdominal wall on the right. I left this in place while I dissected the base of the appendix. Once a mesenteric window was created, a purple load Endo-ADDIE stapler was used to divide the appendix at its base. I then carefully peeled the appendix off of the anterior abdominal wall. The tip of the appendix appeared to be stuck within a direct inguinal hernia. This was removed and examined. There was exudate within the direct hernia sac, however, the tip of the appendix did appear intact. No gross purulence was spilled. A vascular load stapler was then used to divide the mesoappendix. The staple lines were inspected for bleeding. There was none; however there was clot on the cecal staple line. I elected to clip across this with a 5 mm clip hairspring assembler to ensure hemostasis. The appendix was then removed from the abdomen using an Endo-Catch bag. The specimen was sent to pathology. I examined the hernia. Again there was fibrinous material within. This was suctioned out. There was no other purulence spilled in the abdomen. The patient was then laid flat and the ports were removed. The abdomen was then desufflated. The 12 mm port site fascia was closed with 0 Vicryl. The skin was then closed with absorbable subcuticular suture. Sterile dressings were then applied. Instrument sponge and needle counts were correct at the end of the case. The patient was then woken and transported to the PACU in stable condition. ? The patient tolerated the procedure well. Findings: 1. Acute appendicitis located within a direct right inguinal hernia(Amyand's) 2. Fibrinous exudate noted on the appendiceal tip, however no obvious perforation. Anesthesia: GETA Surgeon: Fatimah Frances MD Estimated blood loss (mL): 5 Specimen: Appendix Condition: stable Disposition: PACU
--- NOTE | 2023-11-26 18:42 | P.ANES_ITS ---
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
[2023-11-26] MEDS: HYDROmorphone 0.5 mg/0.5 ml inj IVP (18:50)
[2023-11-26] MEDS: HYDROCODONE-ACETAMIN 5-325 MG 1 TAB PO (21:01)
== END 2023-11-26 22:10 | disposition home or self-care (01) ==
LOC: ED 15:37 → SS 17:11 → MEDSURG 19:14
PROVIDERS: Emergency Provider Emergency Medicine Emergency Medical Services; Visit Provider Surgery
PROC: 0DTJ4ZZ Resection of Appendix, Percutaneous Endoscopic Approach (ICD-10-PCS; CPT 44970; principal; 2023-11-26 17:15)
DX: O99.63 Diseases of the digestive system complicating the puerperium (principal); K35.80 Unspecified acute appendicitis; R10.31 Right lower quadrant pain; R93.89 Abnormal findings on diagnostic imaging of other specified body structures; K40.90 Unilateral inguinal hernia, without obstruction or gangrene, not specified as recurrent; F32.9 Major depressive disorder, single episode, unspecified
CPT/HCPCS: 44970; 00840; 36415; 74177; 76830; 76856; 80048; 81001; 85025; 88304; 93976; 99140; 99284; 99285; A9270; J0330; J0665; J1100; J1170; J1885; J2250; J2405; J2543; J2704; J2710; J3010; J7120; Q9967

== ENCOUNTER 2024-05-19 14:35 | Outpatient (CLI) | payer BC, MEDICAID, SELFPAY | END 2024-05-19 14:36 | disposition home or self-care (01) | LOC: NFLDREF 05-20 00:40 | PROVIDERS: PCP Advanced Practice Midwife; Referring Provider Advanced Practice Midwife; Visit Provider Midwife | DX: L40.9 Psoriasis, unspecified (principal); Z13.21 Encounter for screening for nutritional disorder | CPT/HCPCS: 82306 ==

== ENCOUNTER 2025-03-02 15:15 | Outpatient (CLI) | payer BC, MEDICAID, SELFPAY | END 2025-03-02 15:16 | disposition home or self-care (01) | LOC: NFLDREF 03-05 13:33 | PROVIDERS: PCP Advanced Practice Midwife; Referring Provider Advanced Practice Midwife; Visit Provider Advanced Practice Midwife | DX: Z12.4 Encounter for screening for malignant neoplasm of cervix (principal) | CPT/HCPCS: 87624; 87625; 88141; 88142; 88175 ==